=== PATIENT | male | born 1935 | race Caucasian/White ===

== ENCOUNTER 2016-06-22 16:48 | Inpatient (IN) | payer MEDICARE, OTHER ==
[~2016-06-22] VITALS: Ht 175.3 cm; Wt 83.8 kg
[~2016-06-22 16:48] MED LIST: ATOR20TA PO; DIGO0.12 PO; DILTCD120 PO; FE T325T PO; GLIP5TAB8 PO; PROT40TA PO; STOO100C PO; SUCR1S PO
[2016-06-22 16:56] VITALS: BP 132/84; PULSE 88; RESP 18; TEMP 97.6; O2SAT 97
--- NOTE | 2016-06-22 16:57 | PD ---
HPI Chief Complaint: head injury Time Seen by Provider: 16:56 Travel History International Travel<30 days: No Contact w/Intl Traveler<30days: No Traveled to known affect area: No History of Present Illness HPI 81-year-old male was transferred from [facility] for a head injury, head bleed and facial injury sustained from a fall. They did a CT scan of his head, maxillofacial and cervical spine which showed these injuries. They spoke with the trauma surgeon who accepted the case. I went to see the patient and he appears to be somnolent. He is confused and answers repetitively the same thing to different questions. Best GCS is 13. Patient has a large contusion on the left periorbital area with some sutures in place. They sent the patient with the paperwork and the CD of the CAT scans. Dr. Tobin from maxillofacial is here evaluating the patient as well. Patient is unable to give any meaningful history presently. PFSH Past Medical History Narrative Medical List of his past medical history as reviewed from the nursing note. Asthma: No Atrial Fibrillation: Yes (2006) Blood Disorders: Yes (see above) Cancer: Yes (SKIN CANCER REOVED FROM NOSE.) Cardiovascular Problems: Yes (afib 2006) High Cholesterol: Yes Chemotherapy: No Chest Pain: No COPD: No Diabetes: Yes (LANTUS) Diminished Hearing: No Endocrine: No Gastrointestinal Disorders: Yes (GI BLEED 2006.) GERD: Yes Gout: Yes Hypertension: Yes Immune Disorder: No Musculoskeletal: Yes (PULL SHOULDER OUT PLAYING GOLF) Psychiatric: No Respiratory: No Radiation Therapy: No Sleep Apnea: No Ulcer: Yes (HX OF PEPTIC ULCER DISEASE) Past Surgical History Abdominal Surgery: Yes (COLON RESECTION-2002.) AICD: No Arteriovenous Shunt: No Insulin Pump: No Joint Replacement: No Pacemaker: No Other Surgery: Yes (COLON RESECTION 2001 2NDARY TO ULCERATIVE COLITIS. ) Social History Alcohol Use: No Tobacco Use: No Substance Use: No Allergies-Medications (Allergen,Severity, Reaction): Coded Allergies: No Known Allergies (Verified , 06/22/16) Comments No known drug allergies. Reported Meds & Prescriptions Reported Meds & Active Scripts Active Reported Klor-Con M10 (Potassium Chloride Microencaps) Unknown Strength Tab Unknown Dose PO BID Lasix (Furosemide) 20 Mg Tab 20 Mg PO BID Prozac (Fluoxetine HCl) 20 Mg Cap 20 Mg PO DAILY Glipizide 5 Mg Tab 5 Mg PO BIDAC Take 30 minutes before a meal Ferrous Sulfate 325 Mg Tab 325 Mg PO DAILY Colace (Docusate Sodium) 100 Mg Cap 100 Mg PO BID Diltiazem CD 24 HR 120 Mg Caper 120 Mg PO DAILY Digoxin 0.125 Mg Tab 0.125 Mg PO DAILY Atorvastatin (Atorvastatin Calcium) 20 Mg Tab 20 Mg PO HS Narrative Medication List of his home medications reviewed from the nursing note. Review of Systems Except as stated in HPI: all other systems reviewed are Neg Physical Exam Narrative GENERAL: Lethargic, confused, elderly, moderate distress SKIN: Warm and dry. HEAD: Atraumatic. Normocephalic. Large left periorbital ecchymosis with 4 sutures in the inferior orbital ridge. No active bleeding. EYES: Pupils equal and round. No scleral icterus. No injection or drainage. ENT: No nasal bleeding or discharge. Mucous membranes pink and moist. NECK: Trachea midline. No JVD. CARDIOVASCULAR: Regular rate and rhythm. No murmur appreciated. RESPIRATORY: No accessory muscle use. Clear to auscultation. Breath sounds equal bilaterally. GASTROINTESTINAL: Abdomen soft, non-tender, nondistended. Hepatic and splenic margins not palpable. MUSCULOSKELETAL: No obvious deformities. No clubbing. No cyanosis. No edema. NEUROLOGICAL: GCS 13. No obvious cranial nerve deficits. Motor grossly within normal limits. PSYCHIATRIC: Unable to assess Data Data Last Documented VS Vital Signs Date Time Temp Pulse Resp B/P Pulse Ox O2 Delivery O2 Flow Rate FiO2 06/22/16 17:05 90 16 98 Room Air 06/22/16 16:56 97.6 132/[address] Brain W/O Iv Contrast(Rout) (06/22/16 ) Ct Facial Bones W/O Iv Cont (06/22/16 ) Prothrombin Time / Inr (Pt) (06/22/16 17:09) ^ Securities Broker / Telemetry (06/22/16 17:09) ^ Saline Lock (06/22/16 17:09) Admit Order (Ed Use Only) (06/22/16 17:32) Labs Laboratory Tests Test 06/22/16 17:20 Prothrombin Time 14.8 SEC Prothromb Time International 1.3 RATIO Ratio MDM Medical Decision Making Medical Screen Exam Complete: Yes Emergency Medical Condition: Yes Medical Record Reviewed: Yes Differential Diagnosis Intracranial bleed, facial fractures, brain herniation Narrative Course 5:39 PM I'm repeating the head CT given his somnolence. Initial CT that was done at 11 AM this morning at [facility] showed a small frontal bleed with some surrounding edema. She has history of atrial fibrillation but there were no coag studies done. I've ordered that. I am unaware of the fact that if patient is on any anticoagulation for his atrial fibrillation. I contacted the trauma surgeon Dr. Ghosh to let him know that the patient is here and update him about his current condition. He has accepted the patient for admission and patient will be admitted to the ICU. He wants the patient to be admitted under his service. Procedures EKG Prior to Arrival: No Physician Communication Physician Communication Dr. Johnston, Dr. Tobin Diagnosis Primary Impression: Intracranial bleed Additional Impressions: Facial fracture due to fall Qualified Code: S02.92XA - Facial fracture due to fall, closed, initial encounter Fall Qualified Code: W19.XXXA - Fall, initial encounter Aguilar Dexter MD Jun 22, 2016 16:57
[2016-06-22 17:40] LABS: INTERNATIONAL NORMALIZED RATIO 1.3 RATIO; PROTHROMBIN TIME - PATIENT 14.8 SEC (9.8-11.6)
--- NOTE | 2016-06-22 18:05 | RADRPT ---
EXAM DATE/TIME: 06/22/2016 17:36 [facility] COMPARISON: No previous studies available for comparison. INDICATIONS : Trauma; fall today, known facial fractures. RADIATION DOSE: 36.73 CTDIvol (mGy) MEDICAL HISTORY : None SURGICAL HISTORY : None. ENCOUNTER: Initial ACUITY: 1 day PAIN SCORE: 5/10 LOCATION: Bilateral facial TECHNIQUE: Volumetric scanning of the facial bones was performed. Using automated exposure control and adjustme nt of the mA and/or kV according to patient size, radiation dose was kept as low as reasonably achiev able to obtain optimal diagnostic quality images. FINDINGS: Again seen is a 1 cm hemorrhage in the orbital frontal region on the left. There is a fracture of th e posterior lateral orbital rim with minimal buckling of the zygomatic arch. The infraorbital rim ap pears intact. There is no entrapment. The mandible is intact. CONCLUSION: Fractures of the left maxillary antrum. Small 1 cm orbital frontal hemorrhage on the left. Rock Walters MD FACR on June 22, 2016 at 17:59 Board Certified Radiologist. This report was verified electronically.
--- NOTE | 2016-06-22 18:09 | RADRPT ---
EXAM DATE/TIME: 06/22/2016 17:36 [facility] COMPARISON: CT BRAIN W/O CONTRAST, November 06, 2015, 13:14. INDICATIONS : Trauma; fall, evaluate for bleed. RADIATION DOSE: 56.35 CTDIvol (mGy) MEDICAL HISTORY : Hypertension. SURGICAL HISTORY : None. ENCOUNTER: Initial ACUITY: 1 day PAIN SCALE: 5/10 LOCATION: cranial TECHNIQUE: Multiple contiguous axial images were obtained of the head. Using automated exposure control and adj ustment of the mA and/or kV according to patient size, radiation dose was kept as low as reasonably a chievable to obtain optimal diagnostic quality images. FINDINGS: There is a small 1.1 cm hemorrhage in the left orbital frontal region. The right hemisphere is unrema rkable. Ventricular size is appropriate. The posterior fossa appears normal. There is calcification of the right maxillary sinus. There is a fracture of the anterior orbital rim as well as the posterior lateral orbital rim. The skull is intact. CONCLUSION: 1.1 cm left orbital frontal hemorrhage. Facial bone fractures as described above. Rock Walters MD FACR on June 22, 2016 at 17:57 Board Certified Radiologist. This report was verified electronically.
[2016-06-22] MEDS ORDERED: ATOR20TA15 PO (18:15)
[2016-06-22] MEDS ORDERED: PROZ20CA11 PO (18:15)
[2016-06-22] MEDS ORDERED: GLIP5TAB8 PO (18:15)
[2016-06-22] MEDS ORDERED: FURO1TAB62 PO (18:15)
[2016-06-22] MEDS ORDERED: FERR325T PO (18:15)
[2016-06-22] MEDS ORDERED: DILT-60 PO (18:15)
[2016-06-22] MEDS ORDERED: COLA100C3 PO (18:15)
[2016-06-22] MEDS ORDERED: DIGO0.12 PO (18:15)
[2016-06-22] MEDS ORDERED: POTA-88 PO (18:15)
[2016-06-22] MEDS: ceFAZolin 1,000 MG/NS 100 ML IV SCH ×2 (18:23)
[2016-06-22 18:30] VITALS: BP 126/81; PULSE 68; RESP 18; O2SAT 98
[2016-06-22 19:09] VITALS: BP 120/88; PULSE 97; RESP 16; O2SAT 90; O2SAT 95
[2016-06-22 19:16] VITALS: O2SAT 95
--- NOTE | 2016-06-22 19:35 | HHI.HP ---
HPI Service Critical Care Medicine Primary Care Physician Unknown Admission Diagnosis fall, head bleed, facial fracture Diagnosis: Chief Complaint: Somnolent. Transfer from [facility] after fall with brain bleed and facial fracture, AMS. Travel History International Travel<30 Days: No Contact w/Intl Traveler <30 Da: No Traveled to Known Affected Are: No History of Present Illness 81 y/o man fell forward on to his face, sustaining maxillary fracture and small left frontal lobe parenchymal contusion/bleed, 1 cm size, no shift or edema. Somnolent on arrival. GCS 13 in ED here. Past Family Social History Allergies: Coded Allergies: No Known Allergies (Verified , 06/22/16) Past Medical History Past Medical History Narrative Medical List of his past medical history as reviewed from the nursing note. Asthma: No Atrial Fibrillation: Yes (2006) Blood Disorders: Yes (see above) Cancer: Yes (SKIN CANCER REOVED FROM NOSE.) Cardiovascular Problems: Yes (afib 2006) High Cholesterol: Yes Chemotherapy: No Chest Pain: No COPD: No Diabetes: Yes (LANTUS) Diminished Hearing: No Endocrine: No Gastrointestinal Disorders: Yes (GI BLEED 2006.) GERD: Yes Gout: Yes Hypertension: Yes Immune Disorder: No Musculoskeletal: Yes (PULL SHOULDER OUT PLAYING GOLF) Psychiatric: No Respiratory: No Radiation Therapy: No Sleep Apnea: No Ulcer: Yes (HX OF PEPTIC ULCER DISEASE) Past Surgical History Abdominal Surgery: Yes (COLON RESECTION-2002.) AICD: No Arteriovenous Shunt: No Insulin Pump: No Joint Replacement: No Pacemaker: No Other Surgery: Yes (COLON RESECTION 2001 2NDARY TO ULCERATIVE COLITIS. ) Social History Alcohol Use: No Tobacco Use: No Substance Use: No Allergies-Medications Allergies-Medications (Allergen,Severity, Reaction): Coded Allergies: No Known Allergies (Verified , 06/22/16) Comments No known drug allergies. Reported Meds & Prescriptions Reported Meds & Active Scripts Active Physical Exam Vital Signs Vital Signs Date Time Temp Pulse Resp B/P Pulse Ox O2 Delivery O2 Flow Rate FiO2 06/22/16 19:16 95 Nasal Cannula 2 06/22/16 19:09 97 16 120/88 90 Room Air 06/22/16 18:30 68 18 126/81 98 Room Air 06/22/16 17:05 90 16 98 Room Air 06/22/16 16:56 97.6 88 18 132/84 97 Physical Exam Gen: Lethargic, wakes easily. Speech mumbled. Head: Left orbital contusion. Neck: Supple, airway widely patent, no obstruction. Lungs: Clear, good claudine air movement. No wheezes or crackles. Heart: Irreg Irreg. Harsh 5/6 murmur heard throughout precordium, no JVD. Abdomen: Soft, nontender. No guarding. BS active. Extremities: Well perfused. 1+ chronic edema both ankles. Neuro: Moves 4 limbs with strength to command. Lethargic/somnolent but wakes easily. Laboratory Laboratory Tests Test 06/22/16 17:20 Prothrombin Time 14.8 Prothromb Time International 1.3 Ratio Assessment and Plan Problem List: (1) Cerebral parenchymal hemorrhage ICD Code: I61.9 Status: Acute (2) Maxillary fracture ICD Code: S02.401A Status: Acute (3) Atrial fibrillation ICD Code: I48.91 Status: Acute (4) Fall ICD Code: W19.XXXA Status: Acute Assessment and Plan Assessment: 1. Closed head injury. 2. Maxillary fracture left. 3. Permant a-fib. 4. Harsh systolic murmur. Plan: 1. Admit ICU. 2. Neuro checks hourly. 3. HOB up 30 degrees. 4. No chemical DVT Px. 5. SCDS. 6. Protonix. 7. Repeat head CT a.m., or immediately for neuro change. 8. Continue digoxin and cardizem CD. 9. SSI for euglycemia. Overall impression: Elderly man with moderately severe blunt head injury and small parenchymal hemorrhage. Mental status is clearly altered and potential for rapid deterioration is high. He is in permanent atrial fibrillation and it is unclear whether he is on novel anticoagulation. INR is normal. Critical care 40 mins aside from procedures. Problem Qualifiers (1) Cerebral parenchymal hemorrhage: (2) Fall: Qualified Code: W19.XXXA - Fall, initial encounter Darci Spicer MD Jun 22, 2016 19:35
[2016-06-22] MEDS ORDERED: RESP: ALBUTEROL 2.5 MG/IPRATROPIUM 0.5 MG NEB (PRN) INH (19:45)
[2016-06-22] MEDS ORDERED: CHLORHEXIDINE GLUCONATE 2 % 1 PACK (2 CLOTHS) TOP PRN (19:45)
[2016-06-22] MEDS ORDERED: SODIUM CHLORIDE 0.9% FLUSH 5 ML FLUSH IV FLUSH PRN (19:45)
[2016-06-22] MEDS ORDERED: MISCELLANEOUS NURSING INFORMATION XX SCH (19:45)
[2016-06-22] MEDS ORDERED: ONDANSETRON HCL 4 MG/2 ML VIAL IV PRN (19:45)
[2016-06-22 20:13] VITALS: BP 124/78; PULSE 86; RESP 16; O2SAT 98
[2016-06-22] MEDS ORDERED: GLUCAGON 1 MG/ML VIAL OTHER PRN (20:15)
[2016-06-22] MEDS ORDERED: DEXTROSE 50% IN WATER 50 ML VIAL(D50) IV PUSH PRN (20:15)
[2016-06-22] MEDS: FUROSEMIDE 20 MG TAB PO SCH (21:11)
[2016-06-22] MEDS: SODIUM CHLOR 0.9% 1000 ML INJ 1,000 ML IV SCH (21:11)
[2016-06-22] MEDS: SODIUM CHLORIDE 0.9% FLUSH 5 ML FLUSH IV FLUSH SCH (21:11)
--- NOTE | 2016-06-22 21:35 | MB ---
cc: MIKALA TOBIN DMD DATE OF CONSULTATION 06/22/2016 REASON FOR CONSULTATION Facial fractures. HISTORY OF THE PRESENT ILLNESS This is an 81-year-old male who is status post fall. I was contacted by the ER physician from [facility] that indicated to me that he has a left-sided ZMC fracture / orbital involvement. Upon further questioning also then he told me that the patient has a petechial bleed in his brain. I did then advised the transfer Center to contact Trauma Service as a multi system injury. I have seen and examined this patient this afternoon in the ED. He is alert, awake and oriented x2. In no acute distress. At times he seems confused and answers the same words to the questions. Denies any pain in his face or any vision problems. Denies any neck pain. Denies any shortness of breath and difficulty breathing. PAST MEDICAL HISTORY As per the reports: 1. Atrial fibrillation. 2. Diabetes mellitus type 2. 3. Acid reflux. 4. Hypercholesterolemia. 5. History of GI bleed. 6. Peptic ulcer disease. PAST SURGICAL HISTORY 1. Colon resection. 2. Skin cancer removed from nose. SOCIAL HISTORY No history of any alcohol, tobacco use, drug use. ALLERGIES NO KNOWN DRUG ALLERGIES. MEDICATIONS As per the report was noted in the computer. PHYSICAL EXAMINATION HEENT: Pupils equal, round and reactive to light and accommodation. Extraocular movements appear to be intact. The patient denies any diplopia or blurry vision. Has periorbital edema / ecchymosis that is noted. He also has a laceration on the left lateral orbital region which has been sutured by the ER at [facility]. The rest of the facial nasal bones have been palpated. No active heme that is noted. No tenderness to palpation. Intraorally the patient is edentulous maxilla wearing a denture and a partial denture of the bottom. No gross tenderness to palpation. Good range of opening and closing. No heme that is noted. No heme intraorally from the nose or any other place that is active that is noted at this point. IMAGING CT scan of the facial bones when a repeat CT scan of the brain was done now, shows left maxillary sinus fracture, minimally displaced with air fluid levels in the left maxillary sinus. Nondisplaced left zygomatic arch fracture. I do not see any gross orbital floor fracture that is noted. There is no herniation of any content. LABORATORY DATA A PT is 14.8 with INR is 1.3. Vital signs 97.6, pulse is 90, respiration rate ____, blood pressure 132/84 with an oxygen saturation of 98%. IMPRESSION An 81-year-old male status post fall at intermediate now presents with a nondisplaced left-sided zygomatic arch fracture, minimally displaced left-sided maxillary sinus fracture. He is edentulous on his maxilla. Fluid / blood is left maxillary sinus. At this time there is no surgical intervention needed from oral maxillofacial surgery standpoint. We will place the patient on sinus precautions and antibiotics. The patient can follow up in my office next week [facility]. [phone]. Advised the patient to be on a mechanically soft diet. Mikala Tobin DMD RRT/BERNA /5:59 PM /9:08 PM [place]
[2016-06-22 22:00] VITALS: PULSE 75
[2016-06-22] MEDS: ATORVASTATIN 20 MG TAB PO SCH (23:14)
[2016-06-23] VITALS (15 sets, daily range): BP systolic 122–137; BP diastolic 70–88; PULSE 64–89; RESP 16–22; TEMP 97–98.4; O2SAT 91–98
[2016-06-23] MEDS: ceFAZolin 1,000 MG/NS 100 ML IV SCH ×4 (02:34→09:05)
[2016-06-23 04:37] LABS: BICARBONATE 24.5 MEQ/L (21.0-32.0); POTASSIUM 4.5 MEQ/L (3.5-5.1)
[2016-06-23] MEDS: CHLORHEXIDINE GLUCONATE 2 % 1 PACK (2 CLOTHS) TOP SCH (04:57)
--- NOTE | 2016-06-23 05:50 | RADRPT ---
EXAM DATE/TIME: 06/23/2016 04:13 [facility] COMPARISON: CT BRAIN W/O CONTRAST, June 22, 2016, 17:36. INDICATIONS : Follow up bleed. RADIATION DOSE: 39.71 CTDIvol (mGy) MEDICAL HISTORY : Hypertension. SURGICAL HISTORY : None. ENCOUNTER: Subsequent ACUITY: 1 day PAIN SCALE: 2/10 LOCATION: cranial TECHNIQUE: Multiple contiguous axial images were obtained of the head. Using automated exposure control and adj ustment of the mA and/or kV according to patient size, radiation dose was kept as low as reasonably a chievable to obtain optimal diagnostic quality images. FINDINGS: Punctate parenchymal contusion in the left frontal region is unchanged. No new acute findings are sunil ntified. No evidence of intracranial mass. Nothing to suggest acute infarction. Opacification of the left maxillary sinus and associated fractures again noted. CONCLUSION: Stable small left frontal parenchymal contusion Dawood Givens MD on June 23, 2016 at 5:46 Board Certified Radiologist. This report was verified electronically.
[2016-06-23] MEDS: INSULIN ASPART SUPPLEMENTAL SCALE SQ SCH ×4 (06:00→18:00)
[2016-06-23] MEDS: SODIUM CHLORIDE 0.9% FLUSH 5 ML FLUSH IV FLUSH SCH ×2 (08:23→20:37)
[2016-06-23] MEDS: FUROSEMIDE 20 MG TAB PO SCH ×3 (08:24→21:00)
[2016-06-23] MEDS: DILTIAZEM-CD 120 MG CAP ER PO SCH (08:24)
[2016-06-23] MEDS: FLUoxetine HCL 20 MG CAP PO SCH (08:24)
[2016-06-23] MEDS: SODIUM CHLOR 0.9% 1000 ML INJ 1,000 ML IV SCH ×2 (08:24→19:25)
[2016-06-23] MEDS: DIGOXIN 0.125 MG TAB PO SCH (08:24)
[2016-06-23] MEDS: DOCUSATE SODIUM 100 MG CAP PO SCH ×3 (08:24→21:00)
[2016-06-23] MEDS ORDERED: PANTOPRAZOLE SODIUM 40 MG VIAL IV SCH (09:00)
--- NOTE | 2016-06-23 12:19 | MB ---
cc: HODA ALVARADO M.D. DATE OF CONSULTATION: 06/23/2014 REASON FOR CONSULTATION Traumatic brain injury. HISTORY OF PRESENT ILLNESS This is a 81-year-old gentleman who was transferred from [facility] after presenting there with a fall with subsequent facial fractures and a small frontal lobe contusion. He has been confused with some repetitive speech although he is able to follow simple commands but not relate much of a history. He states that he is unsteady on his feet in a chronic basis and uses a cane and he tripped and fell. He is on chronic Coumadin therapy for atrial fibrillation and also relates a history of diabetes and states he has other multiple medical problems. Main complaint at this point is left lateral chest wall area pain and some facial pain. CT scan of the head reveals a 1.1 cm left frontal lobe contusion from last night and a followup CT scan this morning this contusion is stable with no progression. He also has fracture of the left maxilla and he has been seen by maxillofacial surgery and recommended conservative management for now. PAST MEDICAL HISTORY 1. Atrial fibrillation. 2. Insulin-dependent diabetes mellitus. 3. Ulcerative colitis, status post colon resection in 2001. 4. Hypertension. 5. Gout. 6. Gastroesophageal reflux. 7. History of GI bleed in 2006. 8. Hyperlipidemia. MEDICATIONS 1. Atorvastatin 20 mg q.h.s. 2. Digoxin 0.125 mg daily. 3. Diltiazem 120 mg daily. 4. Colace 100 mg b.i.d. 5. Iron sulfate 325 mg daily. 6. Prozac 20 mg daily. 7. Lasix 20 mg b.i.d. 8. Glipizide 5 mg b.i.d. 9. Potassium chloride. ALLERGIES NO KNOWN DRUG ALLERGIES. SOCIAL HISTORY He is . He is a former smoker. Denies alcohol use. REVIEW OF SYSTEMS Pertinent positives include the complaint of left-sided facial pain around the forehead and maxillary sinus. Denies any neck pain. There is left lateral chest wall pain. Denies any shortness of breath. Does bleed and bruise easily related to Coumadin therapy and relates that he has been taking his medication, although his INR is normal. Complains of chronic unsteadiness. He has a cane to ambulate and relates this to his neuropathy from diabetes, although denies any numbness or paresthesias in the upper or lower extremities. Other pertinent positives as mentioned in history present illness. LABORATORY STUDIES INR is 1.3, PT 14.8, sodium 141, potassium 4.5, BUN 21, creatinine 0.9, glucose 106. PHYSICAL EXAMINATION VITAL SIGNS: Temperature 97.5, pulse 80, respiratory rate is 18, blood pressure 126/75, oxygen saturations 96% on 1 liter nasal cannula. HEAD: Left periorbital ecchymosis. NECK: Neck is supple with good range of motion. CHEST: Clear bilaterally. HEART: Regular rhythm, normal S1, S2. ABDOMEN: Soft, nontender. EXTREMITIES: No cyanosis, edema or deformity. NEUROLOGIC: He is awake, alert. He is oriented to name but not location or exact date. Pupils are equal, reactive. Left-sided slight facial swelling but face appears to be symmetric. Tongue is midline. He moves all four extremities with good strength. Negative Babinski. Follows simple commands. Appreciates light touch sensation. Speech is fluent but he does have some difficulty with complex command following. IMPRESSION 1. 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 2. Left maxillary sinus fracture. 3. Insulin dependent diabetes mellitus. 4. Chronic atrial fibrillation on Coumadin therapy with normal INR. PLAN The patient's diet and activity status can be increased as tolerated with out of bed with physical therapy for safety evaluation. He can be transferred to a regular floor and if stable can be discharged the next day or two depending on his progress and rehabilitative needs. Recommend mechanical DVT prophylaxis along with gastrointestinal stress ulcer prophylaxis and incentive spirometry. MD DAE Ward/YASMIN /9:28 AM /11:58 AM
[2016-06-23] MEDS: CEPHALEXIN MONOHYDRATE 500 MG CAP PO SCH ×5 (14:00→22:00)
--- NOTE | 2016-06-23 14:47 | HHI.CCPN ---
Subjective Brief History This is an 81-year-old gentleman who sustained a fall. Apparently he fell forward and landed on his face. GCS = 15. He was a transfer from [facility]. PMHx: DM, HLD, GI bleed, PUD, skin cancer, Afib, Colon resection - UC INJURIES: LEFT periorbital contusion (4 sutures) Small LEFT frontal lobe parenchymal contusion / bleed LEFT sided maxillary sinus fx LEFT zygomatic arch fx 24 Hour Review/Hospital Course 06/23/2016 Patient is sitting out of bed and chair. He is able to participate in simple conversation. However it takes him a while to remember his 's name. Patient is stable, therefore he can easily be transferred to the [facility] floor. Objective Vital Signs Date Time Temp Pulse Resp B/P Pulse Ox O2 Delivery O2 Flow Rate FiO2 06/23/16 12:00 98.4 82 18 128/70 91 06/23/16 07:45 Nasal Cannula 1.00 Intake and Output 06/22/16 06/22/16 06/23/16 08:00 16:00 00:00 Intake Total 123 ml Output Total 150 ml Balance -27 ml Result Diagram: 06/23/16 0341 Imaging Last Impressions Head CT 06/23/16 0400 Signed Impressions: Service Date/Time: Thursday, June 23, 2016 04:13 - CONCLUSION: Stable small left frontal parenchymal contusion Dawood Givens MD Maxillofacial CT 06/22/16 0000 Signed Impressions: Service Date/Time: Wednesday, June 22, 2016 17:36 - CONCLUSION: Fractures of the left maxillary antrum. Small 1 cm orbital frontal hemorrhage on the left. Rock Walters MD FACR Objective Remarks GENERAL: This is a 81-year-old male sitting up in a chair in no distress. SKIN: Warm and dry. HEAD: Atraumatic. Normocephalic. EYES: PERRLA. Bilateral eye swelling and ecchymosis. ENT: No nasal bleeding or discharge. Mucous membranes pink and moist. NECK: Trachea midline. No JVD. CARDIOVASCULAR: Regular rate and rhythm. CM shows Afib. HR = 85-87. RESPIRATORY: No accessory muscle use. Lungs are clear to auscultation. Breath sounds equal bilaterally. No distress or dyspnea. GASTROINTESTINAL: BS + x 4 quads. Abdomen soft, non-tender, nondistended. MUSCULOSKELETAL: Extremities without cyanosis, or edema. + peripheral pulses x 4 extremities. Warm with good capillary refill and sensation. MAEW. NEUROLOGICAL: Awake and alert. Normal speech and pattern. Urinary Catheter Assessment Urinary Catheter: Yes Assessment to: Continue Assessment and Plan Assessment: (1) Intracranial bleed ICD Code: I62.9 Status: Acute (2) Facial fracture due to fall ICD Code: S02.92XA Status: Acute (3) Maxillary fracture ICD Code: S02.401A Status: Acute (4) Fall ICD Code: W19.XXXA Status: Acute (5) Cerebral parenchymal hemorrhage ICD Code: I61.9 Status: Acute Plan JACK[place]: This is a 81-year-old male who sustained a fall. Apparently he fell forward onto his face. INJURIES: LEFT periorbital contusion (4 sutures) Small LEFT frontal lobe parenchymal contusion / bleed LEFT sided maxillary sinus fx LEFT zygomatic arch fx Consults: CCM. OMFS. Neurosurgery. Diet: Regular mechanical soft diet (per OMFS). Tolerating po diet. Encourage good po intake with each meal. Pulmonary: Encourage good pulmonary toileting. IS at bedside and pt encouraged to use. Rationale for use explained to patient, and verbalized understanding. Duonebs ordered. PAIN Management: Tylenol po. Activity: OOB with assist. PT and OT ordered GI prophylaxis: Protonix IV Bowel regimen: Colace and MOM. DVT prophylaxis: Mechanical VTE with SCDs. Chemical management contraindicated at this time is to parenchymal contusion/bleed. HTN meds: Cardizem, Digoxin, Lasix, ABX: Keflex 500mg TID. DC Planning: Case management consulted for assistance with final discharge disposition. Discussed with RN at bedside. Emotional support provided to patient at bedside and plan of care discussed. Patient is hemodynamically stable in the ICU and therefore can be transferred managed on the med/surg floor for further care. Problem Qualifiers (1) Facial fracture due to fall: Qualified Code: S02.92XA - Facial fracture due to fall, closed, initial encounter (2) Fall: Qualified Code: W19.XXXA - Fall, initial encounter (3) Cerebral parenchymal hemorrhage: Corina Ramirez Jun 23, 2016 14:47
[2016-06-23] MEDS: HALOPERIDOL LACTATE 5 MG/ML AMP IM ONE ×2 (17:00→18:11)
[2016-06-23] MEDS ORDERED: QUEtiapine FUMARATE 25 MG TAB PO ONE (17:00)
[2016-06-23] MEDS: MAGNESIUM HYDROXIDE SUSP 30 ML CUP PO SCH (20:37)
[2016-06-23] MEDS: QUEtiapine FUMARATE 25 MG TAB PO SCH ×2 (20:37→21:00)
[2016-06-23] MEDS: ATORVASTATIN 20 MG TAB PO SCH ×2 (20:37→21:00)
[2016-06-24] VITALS (12 sets, daily range): BP systolic 95–123; BP diastolic 57–87; PULSE 62–114; RESP 16–27; TEMP 97.4–98.5; O2SAT 92–95
[2016-06-24] MEDS: FUROSEMIDE 20 MG TAB PO SCH ×3 (00:45→21:59)
[2016-06-24] MEDS: DOCUSATE SODIUM 100 MG CAP PO SCH ×3 (00:45→21:59)
[2016-06-24] MEDS: QUEtiapine FUMARATE 25 MG TAB PO SCH ×3 (00:45→22:00)
[2016-06-24] MEDS: ATORVASTATIN 20 MG TAB PO SCH ×2 (00:45→22:00)
[2016-06-24] MEDS: CEPHALEXIN MONOHYDRATE 500 MG CAP PO SCH ×4 (00:46→22:00)
[2016-06-24] MEDS: CHLORHEXIDINE GLUCONATE 2 % 1 PACK (2 CLOTHS) TOP SCH (04:00)
[2016-06-24] MEDS: INSULIN ASPART SUPPLEMENTAL SCALE SQ SCH ×4 (06:00→17:51)
[2016-06-24 09:07] LABS: HEMATOCRIT 42.9 % (39.0-51.0); MEAN CELL VOLUME 98.8 FL (80.0-100.0); MEAN CORPUSCULAR HEMOGLOBIN 30.7 PG (27.0-34.0); MEAN CORPUSCULAR HGB CONC 31.1 % (32.0-36.0); PLATELET COUNT 188 TH/MM3 (150-450); RED BLOOD COUNT 4.34 MIL/MM3 (4.50-5.90); RED CELL DISTRIBUTION WIDTH 18.2 % (11.6-17.2); REVIEW FLAG FINAL; WHITE BLOOD COUNT 9.1 TH/MM3 (4.0-11.0)
[2016-06-24 09:12] LABS: BICARBONATE 27.4 MEQ/L (21.0-32.0); MAGNESIUM 1.7 MG/DL (1.5-2.5); POTASSIUM 3.6 MEQ/L (3.5-5.1)
--- NOTE | 2016-06-24 09:13 | HHI.NSPN ---
(Patrick Su) History Chief Complaint: Headache. (Patrick Su) Interval History This is a 81-year-old gentleman who was transferred from [facility] after presenting there with a fall with subsequent facial fractures and a small frontal lobe contusion. He has been confused with some repetitive speech although he is able to follow simple commands but not relate much of a history. He states that he is unsteady on his feet in a chronic basis and uses a cane and he tripped and fell. He is on chronic Coumadin therapy for atrial fibrillation and also relates a history of diabetes and states he has other multiple medical problems. Main complaint at this point is left lateral chest wall area pain and some facial pain. CT scan of the head reveals a 1.1 cm left frontal lobe contusion from last night and a followup CT scan this morning this contusion is stable with no progression. He also has fracture of the left maxilla and he has been seen by maxillofacial surgery and recommended conservative management for now. 06/24/16: Pt awake and alert. Confused but pleasant. Complains of headache. No nausea or vomiting. (Patrick Su) Review of Systems General: Negative for: fever, chills, insomnia Respiratory: Negative for: shortness of breath, cough, sputum Cardiovascular: Negative for: chest pain Gastrointestinal: Negative for: nausea, vomitting, diarrhea, constipation ( Patrick Su) Exam Results Vital Signs Date Time Temp Pulse Resp B/P Pulse Ox O2 Delivery O2 Flow Rate FiO2 06/24/16 06:00 96 06/24/16 04:00 98.5 26 121/69 93 06/23/16 19:32 21 06/23/16 07:45 Nasal Cannula 1.00 Intake and Output 06/23/16 06/23/16 06/24/16 08:00 16:00 00:00 Intake Total 696 ml 988 ml 154 ml Output Total 500 ml 300 ml 125 ml Balance 196 ml 688 ml 29 ml (Patrick Su) Physical Examination Resp: CTA bilaterally Heart: Irregular. 3/6 systolic ejection murmur Abd: Soft positive bs Skin: Left periorbital ecchymosis. Sutures left of eye clean and dry. Muscle: Moves all 4 extremities with seemingly good strength. Neuro: Pt awake and alert. Pupils 4mm bilaterally reactive bilaterally. Confused but pleasant. Follows commands well. Speech repetitive at times. ( Patrick Su) Lab, Micro, Other Results Last Impressions Head CT 06/23/16 0400 Signed Impressions: Service Date/Time: Thursday, June 23, 2016 04:13 - CONCLUSION: Stable small left frontal parenchymal contusion Dawood Givens MD Maxillofacial CT 06/22/16 0000 Signed Impressions: Service Date/Time: Wednesday, June 22, 2016 17:36 - CONCLUSION: Fractures of the left maxillary antrum. Small 1 cm orbital frontal hemorrhage on the left. Rock Walters MD FACR 06/23/16 06/23/16 06/24/16 15:00 23:00 07:00 Intake Total 988 ml 154 ml 60 ml Output Total 300 ml 125 ml 600 ml Balance 688 ml 29 ml -540 ml Intake Oral 240 ml 60 ml 60 ml IV Total 748 ml 94 ml Output Urine Total 300 ml 125 ml 600 ml # Voids 2 # Bowel Movements 0 0 0 (Patrick Su) Medical Decision Making Impression and Plan A: 81 y/o M with a mild traumatic brain injury with a small left frontal lobe contusion which is stable on follow-up imaging study. 2. Left maxillary sinus fracture. 3. Insulin dependent diabetes mellitus. 4. Chronic atrial fibrillation on Coumadin therapy with normal INR. PLAN Continue to monitor neuro exam while in hospital Continue with medical care Continue with rehab efforts. (Patrick Su) Attending Statement The exam, history, and the medical decision-making described in the above note were completed with the assistance of the mid-level provider. I reviewed and agree with the findings presented. I attest that I had a [id number] encounter with the patient on the same day, and personally performed and documented my assessment and findings in the medical record. (Ryan Nazario MD) Patrick Su Jun 24, 2016 09:13 Ryan Nazario MD Jun 24, 2016 17:51
[2016-06-24] MEDS: FLUoxetine HCL 20 MG CAP PO SCH (10:14)
[2016-06-24] MEDS: DILTIAZEM-CD 120 MG CAP ER PO SCH (10:14)
[2016-06-24] MEDS: SODIUM CHLORIDE 0.9% FLUSH 5 ML FLUSH IV FLUSH SCH ×2 (10:14→21:59)
[2016-06-24] MEDS: DIGOXIN 0.125 MG TAB PO SCH (10:14)
[2016-06-24] MEDS: PROPRANOLOL HCL 20 MG TAB PO SCH ×2 (10:15→21:59)
[2016-06-24] MEDS: ACETAMINOPHEN 325 MG TAB PO PRN (10:28)
[2016-06-24] MEDS ORDERED: LORazepam 0.5 MG TAB PO PRN (10:45)
--- NOTE | 2016-06-24 13:08 | HHI.CCPN ---
Subjective Brief History This is an 81-year-old gentleman who sustained a fall. Apparently he fell forward and landed on his face. GCS = 15. He was a transfer from [facility]. PMHx: DM, HLD, GI bleed, PUD, skin cancer, Afib, Colon resection - UC INJURIES: LEFT periorbital contusion (4 sutures) Small LEFT frontal lobe parenchymal contusion / bleed LEFT sided maxillary sinus fx LEFT zygomatic arch fx 24 Hour Review/Hospital Course 06/23/2016 Patient is sitting out of bed and chair. He is able to participate in simple conversation. However it takes him a while to remember his 's name. Patient is stable, therefore he can easily be transferred to the [facility] floor. 06/24/16 Patient is doing well this morning Is awake and alert but disoriented and time and space Apparently had to be restrained last night due to sundown syndrome Neurologically patient is fully intact This small left frontal contusion remains stable and the zygoma fracture is a nonoperative issue Patient is a bordering ICU and waiting for the floor bed for last 2 days Objective Vital Signs Date Time Temp Pulse Resp B/P Pulse Ox O2 Delivery O2 Flow Rate FiO2 06/24/16 10:06 95 21 06/24/16 06:00 96 06/24/16 04:00 98.5 26 121/69 06/23/16 07:45 Nasal Cannula 1.00 Intake and Output 06/23/16 06/23/16 06/24/16 08:00 16:00 00:00 Intake Total 696 ml 988 ml 154 ml Output Total 500 ml 300 ml 125 ml Balance 196 ml 688 ml 29 ml Result Diagram: 06/24/16 0817 06/24/16 0817 Exam JEWELLERY DESIGNER Awake alert and disoriented Will place on some propranolol and possibly Aricept as per neuropsychologist Will need occasional restraints patient becomes more lucid and oriented Hemodynamic/Cardiac Imo dynamically stable Pulmonary/Respiratory Bilateral good breath sounds Abdomen/GI Nutrition Abdomen is soft and patient is tolerating diet but needs to be fed Assessment and Plan Assessment: (1) Intracranial bleed ICD Code: I62.9 Status: Acute (2) Facial fracture due to fall ICD Code: S02.92XA Status: Acute (3) Maxillary fracture ICD Code: S02.401A Status: Acute (4) Fall ICD Code: W19.XXXA Status: Acute (5) Cerebral parenchymal hemorrhage ICD Code: I61.9 Status: Acute Plan PALA: This is a 81-year-old male who sustained a fall. Apparently he fell forward onto his face. INJURIES: LEFT periorbital contusion (4 sutures) Small LEFT frontal lobe parenchymal contusion / bleed LEFT sided maxillary sinus fx LEFT zygomatic arch fx Consults: CCM. OMFS. Neurosurgery. Diet: Regular mechanical soft diet (per OMFS). Tolerating po diet. Encourage good po intake with each meal. Pulmonary: Encourage good pulmonary toileting. IS at bedside and pt encouraged to use. Rationale for use explained to patient, and verbalized understanding. Duonebs ordered. PAIN Management: Tylenol po. Activity: OOB with assist. PT and OT ordered GI prophylaxis: Protonix IV Bowel regimen: Colace and MOM. DVT prophylaxis: Mechanical VTE with SCDs. Chemical management contraindicated at this time is to parenchymal contusion/bleed. HTN meds: Cardizem, Digoxin, Lasix, ABX: Keflex 500mg TID. DC Planning: Case management consulted for assistance with final discharge disposition. Discussed with RN at bedside. Emotional support provided to patient at bedside and plan of care discussed. Patient is hemodynamically stable in the ICU and therefore can be transferred managed on the med/surg floor for further care. Attestation Awaiting transfer to the floor The exam, history, and the medical decision-making described in the above note were completed with the assistance of the mid-level provider. I reviewed and agree with the findings presented. I attest that I had a [id number] encounter with the patient on the same day, and personally performed and documented my assessment and findings in the medical record. Critical care time 35 minutes. Problem Qualifiers (1) Facial fracture due to fall: Qualified Code: S02.92XA - Facial fracture due to fall, closed, initial encounter (2) Fall: Qualified Code: W19.XXXA - Fall, initial encounter (3) Cerebral parenchymal hemorrhage: Emiliano Brian MD Jun 24, 2016 13:08
--- NOTE | 2016-06-24 13:11 | PD.HHIRCNE ---
Patient History Record/History Review Medical Information Review: Hx of present illness, Surgical Hx, Prior Medical Hx, Developmental/Vocational, Previous setting Reason for Referral: The patient is an 81 year old unknown handed male status post traumatic injury secondary to a fall on 06/22/2016. The patient sustained a maxillary fracture and small left frontal lobe contusion/bleed with a GCS score of 13 on admission. 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 I had the opportunity to interview the patient's , who informed me that the patient has experienced cognitive decline for well over one year, characterized by impairments of memory, increasing paranoia concerning 's activities, and deterioration of self-care activities. He had not been formally diagnosed with a neurocognitive disorder up to this time. Beginning several months ago, he had a stomach bleed that landed him in a local SNF, with his ongoing recovery complicated by a series of falls, which is the reason he is here at [facility]. Because of his clinical history, this patient is referred for baseline neuropsychological evaluation to assess cognitive, behavioral and emotional aspects of the injury. Neuropsych Precautions: Ongoing areas of concern will include attention inefficiency, impairments of learning and memory, speech and language impairments, impairments of complex problem solving the ability to understand abstract reasoning, emotional reaction to their condition, lack of insight, awareness and judgment, and behavioral impulsivity. His clinical history indicates that his recovery from the effects of the superimposed brain injury will be attenuated by an underlying neurocognitive disorder. Past Surgical/Medical History Past Surgery: Yes (COLON RESECTION 2008) Major surgery in last 100 days: Unknown Hx Anesthesia Reactions: No Hx Orthopedic Surgery: No Hx Cardiac Surgery: No Hx Chest Surgery: No Hx Abdominal Surgery: Yes (COLON RESECTION 2008) Hx Genitourinary Surgery: No Hx Endocrine Surgery: No Hx Eye Surgery: Yes (CATERACTS BILATERAL) Hx Ear Surgery: No Hx Oral Surgery: Yes (DENTURES) History of Transplant: No Hx Other Surgery: SKIN CANCER SURGERY Hx of Neuro Prob: No Hx Falls: No Hx of Musculoskeletal Pro: No Hx of Cardiovascular Prob: Yes (HTN, AFIB, HYPERLIPIDEMIA) Hypertension (High Blood Press: Yes Hx Clotting Problems: No Venous Thromboembolism Present: No Hx Chest Pain: No Hx Lightheadedness: No Hx Congestive Heart Failure: No Syncope (Fainting): No Hx of Respiratory Problem: No Hx Asthma: No Hx Chronic Obstructive Pulmona: No Hx Sleep Apnea: No Hx of GI Problems: Yes (ULCERITIVE COLLITIS, PREVIOUS VISIT FOR PEPTIC ULCER BLEED) Hx Heartburn: No Hx Gastroesophageal Reflux: No Hx Hiatal Hernia: Yes (REDUCTABLE ) Hx Ulcer: Yes (PREVIOUS VISIT IN OCTOBER 2015) Hx Liver Disease: No Hx Gallbladder Disease: No Hx Inflammatory Bowel Disease: No Hx of Problems: No Hx of Immuno Disor: No Hx Autoimmune Disease: No Hx of Endocrine Problems: No Hx Diabetes: Yes Does Patient Currently Take Gl: No Hx of Eye Probl: Yes (PREVOUS EYE SURGERY ) Hx of Cataracts: Bilateral Hx of Hearing or Ear Problems: No Hx Dental Problems: Yes (UPPER FULL DENTURES) Hx Psychiatric Problems: Yes (EARLY DEMENTIA) Hx Anxiety: No Hx Depression: Yes (LAST SIX MONTHS IN ASSISTED LIVING) Hx Blood Dyscrasias: No Hx of MDRO: No Hx of MRSA: No Hx of VRE: No Hx of CDIFF: No Hx of Tuberculosis: No Hx Chicken Pox: Yes (CHILDHOOD) If No, Have You Been Exposed W: No Hx Measles: Yes Hx of Body/Medical Devices: No Hx Pacemaker: No Hx Internal Defibrillator: No Hx Joint Replacement: No Insulin Pump: No Hx Arteriovenous Shunt: No Hx Dental Implants: No Genitourinary Device: No Gastrointestinal Ostomy: No Blood Transfusion History Will receive Blood /Blood prod: Yes Hx Blood Transfusions: Yes (IN OCTOBER 2015, NO REACTION) Hx Blood Transfusion Reaction: No Medication Active Medications Cephalexin Monohydrate (Keflex) 500 mg Q8HR PO Last administered on 06/24/16 06 :14; Admin Dose 500 MG; Start 06/23/16 at 14:00 Donepezil HCl (Aricept) 10 mg HS PO; Start 06/24/16 at 21:00 Famotidine (Pepcid) 20 mg HS PO; Start 06/24/16 at 21:00 Haloperidol Lactate (Haldol Inj) 2 mg ONCE ONCE IM Last administered on 18:11; Admin Dose 2 MG; Start 06/23/16 at 17:00; Stop 06/24/16 at 07:09; Status DC Lorazepam (Ativan) 0.5 mg TID PRN PO; Start 06/24/16 at 10:45 Magnesium Hydroxide (Milk Of Magnesia Liq) 30 ml HS PO; Start 06/23/16 at 21:00 Propranolol HCl (Inderal) 20 mg Q12HR PO Last administered on 06/24/16 10:15; Admin Dose 20 MG; Start 06/24/16 at 09:45 Quetiapine Fumarate (SEROquel) 25 mg BID PO Last administered on 06/24/16 10:15 ; Admin Dose 25 MG; Start 06/23/16 at 21:00 Quetiapine Fumarate (SEROquel) 25 mg ONCE ONCE PO Last administered on 17:06; Admin Dose 25 MG; Start 06/23/16 at 17:00; Stop 06/24/16 at 07:09; Status DC Mental Status Assessment Orientation: oriented to Self, disoriented to Place, disoriented to Time, disoriented to Situation Mental Status: Impaired: Thought processing, Language/Interactions, Attention, Learning/Memory, Problem-Solving, Visuospatial/Construction, Self-regulation, Other Observation The patient is alert but oriented only to person. He was not oriented to place , time or circumstances surrounding the reason for hospitalization. The [place] Orientation and Amnesia Test (GOAT) score was 2/100, which falls within the impaired range. In terms of attention skills, the patient was unable to remain on task or to remember basic or complex instructions. In terms of memory functioning, the patient was unable to remember any of three words after a brief period of time. The patient did not initiate coherent spontaneous conversation. Speech was characterized by impaired prosody, grammar , articulation, volume or rate. Basic naming skills were not intact. Language repetition skills were intact. The patients comprehensions for basic one- and two-stage commands were not intact. Basic verbal abstraction and problem- solving skills were not intact. The patient appears to posses poor insight and awareness into their situation and within the limits of this brief evaluation, poor judgment. Adjustment/Coping Assessment Adjustment/Coping: Severe: Awareness, Insight, Not Assessed: Depression, Anxiety, Pain, Apathy Affect: Other Observation The patients thought content appeared free from suicidal, homicidal or paranoid ideation, and the patients thought processes were perseverative. The patients mood was anxious, and his affect was worrisome. LTG Status: Deferred STG Status: Deferred Team Members: Neuropsychologist Behavior Assessment Agitation: Moderate Treatment Engagement: Minimal Observation Behaviorally, the patient demonstrated signs of agitation, impulsivity and disinhibition. Nursing staff reported significant agitation requiring restraints. 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 These double conditions will attenuate his recovery going forward. Diagnosis: [place] Level: IV:Confused/Agitated-maximal assist Maximizing acute care outcome It is recommended that the patient be monitored for emergent behavioral impulsivity as the medical condition evolves. This patients neuropathological challenges will limit his recovery potential going forward, and these challenges will require specialized therapeutic skills to maximize outcome. 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 Discharge Planning Anticipated Problems Because this patient has an underlying neurocognitive condition that was significant in it's own right, with a superimposed neurocognitive condition, it is my clinical opinion that even if he were to enjoy maximal neurocognitive recovery from his traumatic brain injury, the patient will still have underlying neurocognitive impairments, and consequently, certain restrictions are to be considered going forward to manage his ongoing care, which include the followin. This patient is NOT considered to be cognitively capable of making decisions of a legal, financial and medical nature due both to his present and underlying neurocognitive impairments. He demonstrates the IMPAIRED ability to appreciate a situation and its likely consequences and he demonstrates the IMPAIRED ability to manipulate information rationally. He will require family input regarding all important decisions going forward. He does NOT appear capable of managing his own funds and he will need someone to make such decisions going forward. 2. Concerning his ability to live alone and independently, this patient is functioning at a Global Deterioration Scale level of 7, which functionally means that this patient is unable to survive at home without maximum 24 hour/day assistance. During interview, he was unable to recall relevant aspects of his life; he was disoriented, in addition to the cognitive impairments described in this report. Given these neuropsychological evaluation results, this patient cannot return home to an independent living situation and will need placement in a facility with significant structure. Treatment Plan This clinician will continue to follow with you throughout the course of this patients rehabilitation treatment, and I will be available to meet with the patients family/support system to facilitate their understanding and the ongoing care of their family member. The goals of neuropsychological intervention shall be both educational and supportive to the family/support system as is deemed clinically appropriate. Discharge Needs To be determined. Session Attendance Variance 1 hour, including staff consultation, interview with , medical record review , evaluation time, and report write-up. Thank you Thank you for the opportunity to assist in this patients care. Samuel Ibanez, Ph.D., ABPP Board Certified in Clinical Neuropsychology [place] [employer] [place] Licensed Psychologist #[id number] Samuel Ibanez PhD Jun 24, 2016 1:11 pm
--- NOTE | 2016-06-24 15:17 | RADRPT ---
EXAM DATE/TIME: 06/24/2016 14:17 [facility] COMPARISON: No previous studies available for comparison. INDICATIONS : Left foot pain since the patients fall 2 days ago. MEDICAL HISTORY : None. SURGICAL HISTORY : None. ENCOUNTER: Subsequent ACUITY: 2 days PAIN SCORE: 5/10 LOCATION: Left foot. FINDINGS: Three view examination of the left foot demonstrates no soft tissue swelling, dislocation, or fractur e. The tarsal bones appear intact. Mild hallux valgus deformity of the first ray. The interphalang eal and metatarsophalangeal joints are intact. The calcaneus is intact. Bony mineralization is norm al. Calcaneal spur is seen at plantar aponeurosis. There is atherosclerotic calcification of the esther onal vasculature. CONCLUSION: 1. No acute osseous injury. 2. Mild hallux valgus deformity of the first ray. 3. Calcaneal spur at the plantar aponeurosis. 4. No acute osseous injury. Kenneth Watson MD on June 24, 2016 at 15:12 Board Certified Radiologist. This report was verified electronically.
--- NOTE | 2016-06-24 16:01 | RADRPT ---
EXAM DATE/TIME: 06/24/2016 14:11 [place] COMPARISON: No previous studies available for comparison. INDICATIONS : Left ankle pain since the patients fall 2 days ago. MEDICAL HISTORY : Hypertension. SURGICAL HISTORY : None. ENCOUNTER: Subsequent ACUITY: 2 days PAIN SCORE: 6/10 LOCATION: Left ankle. FINDINGS: The ankle is normally aligned. There are some small well corticated densities seen adj acent to the medial malleolus. These likely represent the sequelae of prior injury. Donor sites sugg est acute fractures not clearly seen. Soft-tissue swelling at the ankle is not clearly seen. There i s a calcaneal spur at the plantar aponeurosis attachment site. CONCLUSION: 1. Well-corticated bony density seen adjacent to the medial malleolus. These are though to likely be the sequelae of prior injury. An acute fracture is not seen. 2. Calcaneal spur. Dawood Jean MD on June 24, 2016 at 15:53 Board Certified Radiologist. This report was verified electronically.
[2016-06-24] MEDS: DONEPEZIL HCL 5 MG TAB PO SCH (21:59)
[2016-06-24] MEDS: MAGNESIUM HYDROXIDE SUSP 30 ML CUP PO SCH (22:00)
[2016-06-24] MEDS: FAMOTIDINE 20 MG TAB PO SCH (22:00)
[2016-06-25] VITALS (8 sets, daily range): BP systolic 102–119; BP diastolic 52–64; PULSE 50–85; RESP 16–20; TEMP 95.5–97.9; O2SAT 93–97
[2016-06-25] MEDS: CHLORHEXIDINE GLUCONATE 2 % 1 PACK (2 CLOTHS) TOP SCH (04:00)
[2016-06-25] MEDS: CEPHALEXIN MONOHYDRATE 500 MG CAP PO SCH ×3 (05:38→21:51)
[2016-06-25] MEDS: INSULIN ASPART SUPPLEMENTAL SCALE SQ SCH ×5 (06:00→23:09)
[2016-06-25] MEDS: PROPRANOLOL HCL 20 MG TAB PO SCH ×2 (08:55→21:51)
[2016-06-25] MEDS: DOCUSATE SODIUM 100 MG CAP PO SCH ×2 (08:55→21:51)
[2016-06-25] MEDS: DILTIAZEM-CD 120 MG CAP ER PO SCH (08:55)
[2016-06-25] MEDS: QUEtiapine FUMARATE 25 MG TAB PO SCH ×2 (08:55→21:52)
[2016-06-25] MEDS: DIGOXIN 0.125 MG TAB PO SCH (08:55)
[2016-06-25] MEDS: FUROSEMIDE 20 MG TAB PO SCH ×2 (08:55→21:52)
[2016-06-25] MEDS: SODIUM CHLORIDE 0.9% FLUSH 5 ML FLUSH IV FLUSH SCH ×2 (08:55→21:52)
[2016-06-25] MEDS: FLUoxetine HCL 20 MG CAP PO SCH (08:55)
[2016-06-25] MEDS ORDERED: PNEUMOCOCCAL POLYVALENT INJ 25 MCG/0.5 ML SYR IM ONE (10:00)
--- NOTE | 2016-06-25 10:13 | HHI.NSPN ---
(Patrick Su) History Chief Complaint: Headache. (Patrick Su) Interval History This is a 81-year-old gentleman who was transferred from [facility] after presenting there with a fall with subsequent facial fractures and a small frontal lobe contusion. He has been confused with some repetitive speech although he is able to follow simple commands but not relate much of a history. He states that he is unsteady on his feet in a chronic basis and uses a cane and he tripped and fell. He is on chronic Coumadin therapy for atrial fibrillation and also relates a history of diabetes and states he has other multiple medical problems. Main complaint at this point is left lateral chest wall area pain and some facial pain. CT scan of the head reveals a 1.1 cm left frontal lobe contusion from last night and a followup CT scan this morning this contusion is stable with no progression. He also has fracture of the left maxilla and he has been seen by maxillofacial surgery and recommended conservative management for now. 06/24/16: Pt awake and alert. Confused but pleasant. Complains of headache. No nausea or vomiting. 06/25/16: Pt awake and alert. Periods of confusion and he is in a Ash vest. No headache, nausea, vomiting. (Patrick Su) Review of Systems General: Negative for: fever, chills, insomnia Respiratory: Negative for: shortness of breath, cough, sputum Cardiovascular: Negative for: chest pain Gastrointestinal: Negative for: nausea, vomitting, diarrhea, constipation ( Patrick Su) Exam Results Vital Signs Date Time Temp Pulse Resp B/P Pulse Ox O2 Delivery O2 Flow Rate FiO2 06/25/16 08:00 97.2 56 16 108/55 96 06/25/16 01:22 Room Air 06/24/16 10:06 21 06/23/16 07:45 1.00 Intake and Output 06/24/16 06/24/16 06/25/16 08:00 16:00 00:00 Intake Total 60 ml 480 ml 240 ml Output Total 600 ml Balance -540 ml 480 ml 240 ml (Patrick Su) Physical Examination Resp: CTA bilaterally Heart: Irregular. 3/6 systolic ejection murmur Abd: Soft positive bs Skin: Left periorbital ecchymosis. Sutures left of eye clean and dry. Muscle: Moves all 4 extremities with good strength, symmetrically. Neuro: Pt awakens to voice. Pupils 4mm bilaterally reactive bilaterally. Confused but pleasant. Follows commands well. (Patrick Su) Lab, Micro, Other Results Last Impressions Foot X-Ray 06/24/16 0000 Signed Impressions: Service Date/Time: Friday, June 24, 2016 14:17 - CONCLUSION: 1. No acute osseous injury. 2. Mild hallux valgus deformity of the first ray. 3. Calcaneal spur at the plantar aponeurosis. 4. No acute osseous injury. Kenneth Watson MD Ankle X-Ray 06/24/16 0000 Signed Impressions: Service Date/Time: Friday, June 24, 2016 14:11 - CONCLUSION: 1. Well-corticated bony density seen adjacent to the medial malleolus. These are though to likely be the sequelae of prior injury. An acute fracture is not seen. 2. Calcaneal spur. Dawood Jean MD Head CT 06/23/16 0400 Signed Impressions: Service Date/Time: Thursday, June 23, 2016 04:13 - CONCLUSION: Stable small left frontal parenchymal contusion Dawood Givens MD Maxillofacial CT 06/22/16 0000 Signed Impressions: Service Date/Time: Wednesday, June 22, 2016 17:36 - CONCLUSION: Fractures of the left maxillary antrum. Small 1 cm orbital frontal hemorrhage on the left. Rock Walters MD FACR 06/24/16 06/24/16 06/25/16 15:00 23:00 07:00 Intake Total 480 ml 240 ml 360 ml Balance 480 ml 240 ml 360 ml Intake Oral 480 ml 240 ml 360 ml # Voids 3 2 # Bowel Movements 0 2 (Patrick Su) Medical Decision Making Impression and Plan A: 81 y/o M with a mild traumatic brain injury with a small left frontal lobe contusion which is stable on follow-up imaging study. 2. Left maxillary sinus fracture. 3. Insulin dependent diabetes mellitus. 4. Chronic atrial fibrillation on Coumadin therapy with normal INR. PLAN Continue to monitor neuro exam while in hospital Continue with medical care Continue with rehab efforts. (Patrick Su) Attending Statement The exam, history, and the medical decision-making described in the above note were completed with the assistance of the mid-level provider. I reviewed and agree with the findings presented. I attest that I had a [id number] encounter with the patient on the same day, and personally performed and documented my assessment and findings in the medical record. (Ryan Nazario MD) Patrick Su Jun 25, 2016 10:13 Ryan Nazario MD Jun 25, 2016 11:52
--- NOTE | 2016-06-25 10:26 | HHI.PR ---
Neuropsych Behavior Behavior: Mild: Motivation, Frustration Tolerance/[place], Impulsive/Agitated, Moderate: Behavior, Severe: Coping/Acceptance, Cooperative w/ Treatment Cognitive Cognitive: Severe: Cognitive, Attention/Concentration, Confused/Orientation, Insight/Awareness, Judgement/Problem-Solving, Memory Psychosocial Psychosocial: Mild: Family/Other Adjustment, Moderate: Psychosocial, Severe: Realistic Expectation Progress Notes/Response to Tx Contents of Sessions: Memory Time with Patient: 15 minutes Premorbid psychological status Premorbid Cognitive, Emotional and Behavioral Status: Stable. The patient has an underlying major neurocognitive disorder due to Alzheimer's disease (see neuropsych report) that underlies his major neurocognitive disorder related to his recent brain injury. Behavioral Reactions of Patient and Family/Support System: Stable. The patient s family is experiencing ongoing issues of adjustment given the nature of the injury, and this aspect of recovery will require ongoing monitoring. I did speak at length with yesterday to gather history about his neurocognition over the past year, and patient was clearly experiencing a neurocognitive decline prior to his hospitalizations and SNF placement. Emotional/Behavioral Status of Patient and Family/Support System: Stable. Pertinent issues, if appropriate to this patients clinical care, are described in detail above. Maximizing acute care outcome It is recommended that the patient be monitored for emergent behavioral impulsivity as the medical condition evolves. This patients underlying neuropathological challenges secondary to major neurocognitive disorder due to Alzheimer's disease may limit his rehabilitation potential going forward. Anticipated Problems Ongoing areas of concern will include behavioral impulsivity, lack of insight and judgment, which is unlikely to improve with either time or treatment. He is expected to have major neurocognitive impairments going forward at some level. Presently, the patient is following one-step commands. Treatment Plan This clinician will continue to follow with you throughout the course of this patients rehabilitation treatment, and I will be available to meet with the patients family/support system to facilitate their understanding and the ongoing care of their family member. The goals of neuropsychological intervention shall be both educational and supportive to the family/support system as is deemed clinically appropriate. Because this patient has an underlying neurocognitive condition that was significant in it's own right, with a superimposed neurocognitive condition, it is my clinical opinion that even if he were to enjoy maximal neurocognitive recovery from his traumatic brain injury, the patient will still have underlying neurocognitive impairments , and consequently, certain restrictions are necessary going forward to manage his ongoing care, which include the followin. This patient is NOT considered to be cognitively capable of making decisions of a legal, financial and medical nature due both to his present and underlying neurocognitive impairments. He demonstrates the IMPAIRED ability to appreciate a situation and its likely consequences and he demonstrates the IMPAIRED ability to manipulate information rationally. He will require family input regarding all important decisions going forward. He does NOT appear capable of managing his own funds and he will need someone to make such decisions going forward. 2. Concerning his ability to live alone and independently, this patient is functioning at a Global Deterioration Scale level of 7, which functionally means that this patient is unable to survive at home without maximum 24 hour/ day assistance. During interview, he was unable to recall relevant aspects of his life; he was disoriented, in addition to the cognitive impairments described in this report. Given these neuropsychological evaluation results, this patient cannot return home to an independent living situation unless he has 24 hour/day supervision and he will likely need placement in a facility with significant structure. 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 These double conditions will attenuate his recovery going forward. Diagnosis: (1) Major neurocognitive disorder as late effect of traumatic brain injury with behavioral disturbance Status: Acute (2) Major neurocognitive disorder due to Alzheimer's disease, probable, with behavioral disturbance Status: Chronic Progress Note Narrative Ongoing follow-up of patient who was seen in his room bedside. Patient remains confused, but his agitation appears to have abated somewhat, although he remains in restraints given ongoing issues of impulsivity related to the neurobehavioral effects of his brain injury. No family was present today. I will continue to follow with you. Samuel Ibanez PhD Jun 25, 2016 10:26 am
--- NOTE | 2016-06-25 12:19 | HHI.PR ---
Subjective Subjective Notes PTD: 3 Patient is a bit more lethargic today. He is requiring a Ash vest for safety. He is being bathed by [employer] during rounds. Objective Vitals/I&O Vital Signs Date Time Temp Pulse Resp B/P Pulse Ox O2 Delivery O2 Flow Rate FiO2 06/25/16 08:00 97.2 56 16 108/55 96 06/25/16 01:22 Room Air 06/24/16 10:06 21 06/23/16 07:45 1.00 Labs Laboratory Tests Test 06/22/16 06/22/16 06/23/16 06/24/16 17:20 22:30 03:41 08:17 Prothrombin Time 14.8 SEC Prothromb Time International 1.3 RATIO Ratio Nasal Screen MRSA (PCR) NEGATIVE Phosphorus Level 3.8 MG/DL White Blood Count 9.1 TH/MM3 Red Blood Count 4.34 MIL/MM3 Hemoglobin 13.3 GM/DL Hematocrit 42.9 % Mean Corpuscular Volume 98.8 FL Mean Corpuscular Hemoglobin 30.7 PG Mean Corpuscular Hemoglobin 31.1 % Concent Red Cell Distribution Width 18.2 % Platelet Count 188 TH/MM3 Mean Platelet Volume 9.2 FL Hematology Comments Sodium Level 141 MEQ/L Potassium Level 3.6 MEQ/L Chloride Level 103 MEQ/L Carbon Dioxide Level 27.4 MEQ/L Anion Gap 11 MEQ/L Blood Urea Nitrogen 19 MG/DL Creatinine 0.85 MG/DL Estimat Glomerular Filtration 86 ML/MIN Rate Random Glucose 125 MG/DL Calcium Level 8.6 MG/DL Magnesium Level 1.7 MG/DL Radiology Last Impressions Foot X-Ray 06/24/16 0000 Signed Impressions: Service Date/Time: Friday, June 24, 2016 14:17 - CONCLUSION: 1. No acute osseous injury. 2. Mild hallux valgus deformity of the first ray. 3. Calcaneal spur at the plantar aponeurosis. 4. No acute osseous injury. Kenneth Watson MD Ankle X-Ray 06/24/16 0000 Signed Impressions: Service Date/Time: Friday, June 24, 2016 14:11 - CONCLUSION: 1. Well-corticated bony density seen adjacent to the medial malleolus. These are though to likely be the sequelae of prior injury. An acute fracture is not seen. 2. Calcaneal spur. Dawood Jean MD Head CT 06/23/16 0400 Signed Impressions: Service Date/Time: Thursday, June 23, 2016 04:13 - CONCLUSION: Stable small left frontal parenchymal contusion Dawood Givens MD Maxillofacial CT 06/22/16 0000 Signed Impressions: Service Date/Time: Wednesday, June 22, 2016 17:36 - CONCLUSION: Fractures of the left maxillary antrum. Small 1 cm orbital frontal hemorrhage on the left. Rock Walters MD FACR Narrative Exam GENERAL: This is a 81-year-old male in bed in no distress. SKIN: Warm and dry. HEAD: Atraumatic. Normocephalic. EYES: PERRLA. Bilateral eye swelling and ecchymosis. ENT: No nasal bleeding or discharge. Mucous membranes pink and moist. NECK: Trachea midline. No JVD. CARDIOVASCULAR: Regular rate and rhythm. CM shows Afib. HR = 77-85. RESPIRATORY: No accessory muscle use. Lungs are clear to auscultation. Breath sounds equal bilaterally. No distress or dyspnea. GASTROINTESTINAL: BS + x 4 quads. Abdomen soft, non-tender, nondistended. MUSCULOSKELETAL: Extremities without cyanosis, or edema. + peripheral pulses x 4 extremities. Warm with good capillary refill and sensation. MAEW. NEUROLOGICAL: Awake but lethargic. A/P Problem List: (1) Atrial fibrillation (2) Maxillary fracture (3) Fall (4) Cerebral parenchymal hemorrhage (5) Intracranial bleed (6) Facial fracture due to fall (7) Major neurocognitive disorder as late effect of traumatic brain injury with behavioral disturbance (8) Major neurocognitive disorder due to Alzheimer's disease, probable, with behavioral disturbance Assessment and Plan [place]: This is a 81-year-old male who sustained a fall. Apparently he fell forward onto his face. (According to his , he's been falling more and more frequently) INJURIES: LEFT periorbital contusion (4 sutures) Small LEFT frontal lobe parenchymal contusion / bleed LEFT sided maxillary sinus fx LEFT zygomatic arch fx Consults: [facility]. OMFS. Neurosurgery, Neuropsych. Palliative care. Diet: Regular mechanical soft diet (per OMFS). Tolerating po diet. Encourage good po intake with each meal. Pulmonary: Encourage good pulmonary toileting. IS at bedside and pt encouraged to use. Rationale for use explained to patient, and verbalized understanding. Duonebs ordered. PAIN Management: Tylenol po. Added Seroquel, propanolol, Aricept, and Ativan 3 TID PRN. Activity: OOB with assist. PT and OT ordered. GI prophylaxis: Pepcid HS. Bowel regimen: Colace and MOM. BM x 2. DVT prophylaxis: Mechanical VTE with SCDs. Chemical management contraindicated at this time is to parenchymal contusion/bleed. HTN meds: Cardizem, Digoxin, Lasix, ABX: Keflex 500mg TID. DC Planning: Case management consulted for assistance with final discharge disposition. Patient previously lived in an [facility], however he will need full- time placement upon discharge. Palliative care consult obtained at 's request to assist with goals and decision-making. Discussed with RN at bedside. Emotional support provided to patient at bedside and plan of care discussed. Patient is hemodynamically stable and is managed on the med/surg floor.. The exam, history, and the medical decision-making described in the above note were completed with the assistance of the mid-level provider. I reviewed and agree with the findings presented. I attest that I had a [id number] encounter with the patient on the same day, and personally performed and documented my assessment and findings in the medical record. Problem Qualifiers (1) Atrial fibrillation: Qualified Code: I48.2 - Chronic atrial fibrillation (2) Maxillary fracture: Qualified Code: S02.40DA - Closed fracture of left side of maxilla, initial encounter (3) Fall: Qualified Code: W19.XXXA - Fall, initial encounter (4) Cerebral parenchymal hemorrhage: (5) Facial fracture due to fall: Qualified Code: S02.92XA - Facial fracture due to fall, closed, initial encounter Corina Ramirez Jun 25, 2016 12:19 Vignesh Ghosh MD Jul 01, 2016 19:48
[2016-06-25] MEDS: DONEPEZIL HCL 5 MG TAB PO SCH (21:51)
[2016-06-25] MEDS: MAGNESIUM HYDROXIDE SUSP 30 ML CUP PO SCH (21:51)
[2016-06-25] MEDS: ATORVASTATIN 20 MG TAB PO SCH (21:52)
[2016-06-25] MEDS: FAMOTIDINE 20 MG TAB PO SCH (21:52)
--- NOTE | 2016-06-25 23:17 | MB ---
cc: WILFRED LANG DATE OF CONSULTATION 06/22/15 1935 DATE OF ADMISSION 06/22/2016 HISTORY OF PRESENT ILLNESS This is a patient who was in a standing position and fell forward hitting his face. He was seen at an outside hospital and found to have facial fracture as well as a small parenchymal contusion. A transfer to a trauma center was requested. The patient is a poor historian, has a history of dementia. As a result, past history is unobtainable as well as review of systems. PHYSICAL EXAMINATION GENERAL: On exam he is laying in bed. HEENT: His pupils are three, equal and reactive. The patient has ecchymosis over his periorbital region. NECK: Trachea is midline. His neck is nontender. LUNGS: Respirations are clear. CARDIOVASCULAR: Irregular. GASTROINTESTINAL: Soft, nontender. MUSCULOSKELETAL: No deformities. NEUROLOGIC: Grossly intact. IMAGING STUDIES CT of the head revealed Facial bone fractures and orbital frontal hemorrhage. ASSESSMENT This is a patient with a fall with closed head injury, orbital fracture. The patient has been admitted to [facility] under critical care. Neurosurgery has been consulted as well as oral maxillofacial surgery. We will monitor his neurological status and provide pain management. MD ACE King/ /10:46 PM /11:03 PM MTDD
[2016-06-26 00:23] VITALS: BP 111/76; PULSE 58; RESP 17; TEMP 97.8; O2SAT 94
[2016-06-26] MEDS: CHLORHEXIDINE GLUCONATE 2 % 1 PACK (2 CLOTHS) TOP SCH (04:00)
[2016-06-26 05:05] VITALS: BP 120/69; PULSE 57; RESP 18; TEMP 97.8; O2SAT 94
[2016-06-26] MEDS: INSULIN ASPART SUPPLEMENTAL SCALE SQ SCH ×3 (06:01→18:00)
[2016-06-26] MEDS: CEPHALEXIN MONOHYDRATE 500 MG CAP PO SCH ×2 (06:03→13:26)
[2016-06-26] MEDS: ACETAMINOPHEN 325 MG TAB PO PRN (06:03)
[2016-06-26 08:24] VITALS: BP 121/75; PULSE 54; RESP 20; TEMP 97.6; O2SAT 96
[2016-06-26] MEDS: DOCUSATE SODIUM 100 MG CAP PO SCH (08:58)
[2016-06-26] MEDS: PROPRANOLOL HCL 20 MG TAB PO SCH (08:58)
[2016-06-26] MEDS: QUEtiapine FUMARATE 25 MG TAB PO SCH (08:58)
[2016-06-26] MEDS: DIGOXIN 0.125 MG TAB PO SCH (08:58)
[2016-06-26] MEDS: FUROSEMIDE 20 MG TAB PO SCH (08:58)
[2016-06-26] MEDS: FLUoxetine HCL 20 MG CAP PO SCH (08:58)
[2016-06-26] MEDS: DILTIAZEM-CD 120 MG CAP ER PO SCH (08:58)
[2016-06-26] MEDS: SODIUM CHLORIDE 0.9% FLUSH 5 ML FLUSH IV FLUSH SCH (08:59)
--- NOTE | 2016-06-26 10:06 | PD.CONS ---
Consult Service Palliative Care . Consult Requested By Corina FITZGERALD . Primary Care Physician Unknown . Reason for Consultation a. To assist with evaluation and management of symptoms including: pain, confusion, agitation b. To assist medical decision maker(s) with: better understanding of current medical conditions; weighing benefits/burdens of medical treatment options; making medical treatment decisions. . (Leila Desai) HPI History of Present Illness Mr. Butt is an 81 year male who was transferred from [facility] to [facility] on 06/22/16 secondary to sustaining a closed head injury status post a fall. An initial CT done at [facility] showed a axillary fracture and a small left frontal lobe parenchymal contusion/bleed. Upon arrival, the patient appeared somnolent. He was confused and responded to questions repetitively with the same answer. GCS of 13. Patient had a large contusion on the left periorbital region with sutures in place. Additional diagnostic findings on arrival include: * Vital sign: Pulse 88, respirations 18, BP 132/84, oxygen saturation 97% on room air, oral temperature 97.6 * PT: 14.8, INR 1.3 * CT facial bones: showed fracture of the left maxillary antrum and a small 1 cm orbital frontal hemorrhage on the left. * CT brain: showed 1cm left orbital rectal hemorrhage, there is a fracture of the anterior orbital rim as well as the posterior lateral orbital rim. Dr. Fortune, trauma surgeon, accepted the patient under his service and the patient was admitted to the ICU. Maxillofacial and neurosurgery were consulted. Follow-up CT of the head on 06/23/16 showed a stable small left frontal lobe contusion. Maxillofacial surgery evaluated the patient and recommended conservative management. Neurosurgery was in agreement and recommended the patient's diet and activity status be increased as tolerated, physical therapy, safety evaluation. The patient's reports the patient has experienced a cognitive decline for greater than 1 year, characterized by impairment of memory, increasing paranoia concerning 's activities and deterioration of self-care activities. Patient' s states the patient was placed in a SNF approximately 9 months ago after being hospitalized with a GIB. She states she was no longer able to care for him at home, and she had become fearful because of his worsening behaviors. Th patient became disoriented over night on 06/24/16 requiring restraints. Because of his clinical history, neuropsychology was consulted for a baseline neuropsychological evaluation. Per Dr. 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 These double conditions will attenuate his recovery going forward. Palliative Care was consulted to assist with symptom management and to discuss with the patient/family the benefits and burdens of his current illnesses and the options regarding future care. . Function/Cognitive Trajectory Patient is currently hospitalized with a TBI status post a fall. His states the patient has been cognitively declining for more than a year, characterized by impairment of memory, increasing paranoia concerning 's activities in deterioration of self-care activities. Patient was placed in a SNF several months ago after being hospitalized in Oct, 2015 with a GIB. Since that time the patient has continued to decline both physically and cognitively. His recovery has been complicated by a series of falls, rehospitalizations and decreased oral intake. . (Leila Desai) Review of Systems ROS Limitations: Altered Mental Status, Speech Impaired, Poor Historian Constitutional: COMPLAINS OF: Change in appetite (Diminished/poor appetite), Pain, Generalized weakness, DENIES: Weight loss (Reported by ) Musculoskeletal: COMPLAINS OF: Decreased range of motion Hematologic/Lymphatics: COMPLAINS OF: Bruising Neurologic: COMPLAINS OF: Abnormal gait, Poor Balance Psychiatric: COMPLAINS OF: Anxiety, Confusion, Agitation (Leila Desai) Past Family Social History Coded Allergies: No Known Allergies (Verified , 06/22/16) Past Medical History Atrial Fibrillation DM Skin Cancer GIB secondary to large duodenal ulcer PUD HLD Ulcerative colitis HTN Gout GERD . Past Surgical History Colon resection 2001 secondary to ulcerative colitis EGD Coloscopy . Reported Medications Klor-Con M10 (Potassium Chloride Microencaps) Unknown Strength Tab Unknown Dose PO BID Lasix (Furosemide) 20 Mg Tab 20 Mg PO BID Prozac (Fluoxetine HCl) 20 Mg Cap 20 Mg PO DAILY Glipizide 5 Mg Tab 5 Mg PO BIDAC Take 30 minutes before a meal Ferrous Sulfate 325 Mg Tab 325 Mg PO DAILY Colace (Docusate Sodium) 100 Mg Cap 100 Mg PO BID Diltiazem CD 24 HR 120 Mg Caper 120 Mg PO DAILY Digoxin 0.125 Mg Tab 0.125 Mg PO DAILY Atorvastatin (Atorvastatin Calcium) 20 Mg Tab 20 Mg PO HS . Current Medications Medications (Trade) Dose Ordered Sig/Courtney Route Start Time Stop Time Status Last Admin (NS Flush) 2 ml UNSCH PRN IV FLUSH 06/22/16 19:45 (NS Flush) 2 ml BID IV FLUSH 06/22/16 21:00 06/26/16 08:59 (Tylenol) 650 mg Q6H PRN PO 06/22/16 19:45 06/26/16 06:03 (Zofran Inj) 4 mg Q6H PRN IV 06/22/16 19:45 Miscellaneous Information 1 Q361D XX 06/22/16 19:45 (Chlorhexidine 2% Cloth) 3 pack Taper DAILY@04 TOP 06/23/16 04:00 06/19/17 03:59 06/23/16 04:57 (Chlorhexidine 2% Cloth) 3 pack UNSCH PRN TOP 06/22/16 19:45 (Lipitor) 20 mg HS PO 06/22/16 21:00 06/25/16 21:52 (Lanoxin) 0.125 mg DAILY PO 06/23/16 09:00 06/26/16 08:58 (Cardizem Cd) 120 mg DAILY PO 06/23/16 09:00 06/26/16 08:58 (PROzac) 20 mg DAILY PO 06/23/16 09:00 06/26/16 08:58 (Lasix) 20 mg BID PO 06/22/16 21:00 06/26/16 08:58 (D50w (Vial) Inj) 25 ml UNSCH PRN IV PUSH 06/22/16 20:15 (Glucagon Inj) 1 mg UNSCH PRN OTHER 06/22/16 20:15 (NovoLOG SUPPLEMENTAL SCALE) 1 Q6H SQ 06/23/16 00:00 06/25/16 18:14 (Colace) 100 mg BID PO 06/23/16 09:00 06/26/16 08:58 (Milk Of Magnesia Liq) 30 ml HS PO 06/23/16 21:00 06/24/16 22:00 (Keflex) 500 mg Q8HR PO 06/23/16 14:00 06/26/16 06:03 (SEROquel) 25 mg BID PO 06/23/16 21:00 06/26/16 08:58 (Pepcid) 20 mg HS PO 06/24/16 21:00 06/25/16 21:52 (Inderal) 20 mg Q12HR PO 06/24/16 09:45 06/26/16 08:58 (Aricept) 10 mg HS PO 06/24/16 21:00 06/25/16 21:51 (Ativan) 0.5 mg TID PRN PO 06/24/16 10:45 . Family History Father at 54 secondary to tuberculosis. Mother's medical history is unknown. . Substance Use Tobacco: Former smoker Alcohol: None known Prescription med abuse: None known Illicit: None known . Psychosocial History Patient is originally from [place]. He has siblings, but he is not in contact with them per his . Patient has been to Natasha for approximately 23 years. The patient's has 2 adults son from a previous relationship. The patient never had children They met at the [employer] where they both worked. He enjoyed playing golf. The patient has been living in a SNF for approximally 9 months, His states she was no longer able to care for him because of his cognitive decline and associated agitation/behaviors. . Spiritual/Cultural Factors [place]que ele[place] . (Leila Desai) Family/friends goals: Patient's (Natasha) describes her as a fun-loving, intelligent, loving man who has lived a good life. She states that although they never completed written advanced directives, she is confident based on the was the patient lived his life and by conversations they shared that he would want the remainder of his life to focus on the quality vs. quantity. . Ethical and Legal Issues Per [place] statutes, in the absence of written advanced directive health care proxy decision making falls to the patient's Natasha Butt. . (Leila Desai) Physical Exam Vital Signs Date Time Temp Pulse Resp B/P Pulse Ox O2 Delivery O2 Flow Rate FiO2 06/26/16 08:24 97.6 54 20 121/75 96 06/26/16 06:15 Nasal Cannula 2.00 06/26/16 05:05 97.8 57 18 120/69 94 06/26/16 00:23 97.8 58 17 111/76 94 1/18/17 20:21 95.8 55 18 119/64 96 06/25/16 18:16 93 21 06/25/16 16:00 95.5 73 17 102/52 93 06/25/16 12:00 96.7 54 16 106/56 97 06/25/16 10:23 95 21 . 06/25/16 06/26/16 19:00 07:00 Intake Total 450 ml 240 ml Balance 450 ml 240 ml Intake Oral 450 ml 240 ml # Voids 3 3 # Bowel Movements 2 . Exam CONSTITUTIONAL/GENERAL: This is a frail, elderly male patient, in no apparent distress. TUBES/LINES/DRAINS: NC, PIV x 1 SKIN: Ecchymoses on extremities and face. Skin temperature appropriate. Not diaphoretic. HEAD: Atraumatic. Normocephalic. EYES: Pupils equal and round and reactive. Extraocular motions intact. No scleral icterus. No injection or drainage. Fundi not examined. Left eyelid swollen, bruised with laceration. ENT: Hearing grossly normal. Nose without bleeding or purulent drainage. NECK: Trachea midline. Supple, nontender. No palpable thyroid enlargement or nodularity. CARDIOVASCULAR: Irregular. No murmurs, gallops, or rubs. No JVD. Peripheral pulses symmetric. RESPIRATORY/CHEST: Symmetric, unlabored respirations. Breath sounds diminished bilaterally. No wheezes, rales, or rhonchi. GASTROINTESTINAL: Abdomen soft, non-tender, nondistended. No hepato-splenomegaly , or palpable masses. No guarding. Bowel sounds present. GENITOURINARY: Without palpable bladder distension. MUSCULOSKELETAL: Extremities without clubbing, cyanosis, or edema. No mottling or clubbing. LYMPHATICS: No palpable cervical or supraclavicular adenopathy. NEUROLOGICAL: Arouse to verbal stimuli. Oriented to self. Moves all extremities to command PSYCHIATRIC: Intermittent agitation, confused. . (Leila Desai) Diagnostic Tests Laboratory Laboratory Tests Test 06/24/16 08:17 White Blood Count 9.1 TH/MM3 (4.0-11.0) Red Blood Count 4.34 MIL/MM3 (4.50-5.90) Hemoglobin 13.3 GM/DL (13.0-17.0) Hematocrit 42.9 % (39.0-51.0) Mean Corpuscular Volume 98.8 FL (80.0-100.0) Mean Corpuscular Hemoglobin 30.7 PG (27.0-34.0) Mean Corpuscular Hemoglobin 31.1 % Concent (32.0-36.0) Red Cell Distribution Width 18.2 % (11.6-17.2) Platelet Count 188 TH/MM3 (150-450) Mean Platelet Volume 9.2 FL (7.0-11.0) Hematology Comments Sodium Level 141 MEQ/L (136-145) Potassium Level 3.6 MEQ/L (3.5-5.1) Chloride Level 103 MEQ/L (98-107) Carbon Dioxide Level 27.4 MEQ/L (21.0-32.0) Anion Gap 11 MEQ/L (5-15) Blood Urea Nitrogen 19 MG/DL (7-18) Creatinine 0.85 MG/DL (0.60-1.30) Estimat Glomerular Filtration 86 ML/MIN (>89) Rate Random Glucose 125 MG/DL (74-106) Calcium Level 8.6 MG/DL (8.5-10.1) Magnesium Level 1.7 MG/DL (1.5-2.5) . (Leila Desai) Result Diagram: 06/24/1617 06/24/16816 Imaging Last 72 hours Impressions Foot X-Ray 06/24/16 0000 Signed Impressions: Service Date/Time: Friday, June 24, 2016 14:17 - CONCLUSION: 1. No acute osseous injury. 2. Mild hallux valgus deformity of the first ray. 3. Calcaneal spur at the plantar aponeurosis. 4. No acute osseous injury. Kenneth Watson MD Ankle X-Ray 06/24/16 0000 Signed Impressions: Service Date/Time: Friday, June 24, 2016 14:11 - CONCLUSION: 1. Well-corticated bony density seen adjacent to the medial malleolus. These are though to likely be the sequelae of prior injury. An acute fracture is not seen. 2. Calcaneal spur. Dawood Jean MD . (Leila Desai) Patient/Family Conference Present at Family Conference: Met with patient's at patient's bedside and privately in the hallway. . Family Conference Time (mins): 45 Family Conference Location: Bedside, Hallway Issues Discussed: * Palliative care role, purpose, approach * Additional medical, psychosocial, and spiritual history * Patients general health, functional status, and cognitive changes in the months leading up to the current hospitalization * Patient/family understanding of the current medical problems * Patient/family understanding of prognosis * Patients goals of care as best understood from advance directives and/or conversations and/or values * Current medical treatment options and benefits/burdens of those options * Likely scenarios comparing ongoing aggressive care with a transition to comfort measures only * Questions answered to the best of my ability * Palliative care contact information provided . (Leila Desai) Assessment and Plan Disease Oriented Problem List: (1) Peptic ulcer disease (2) Atrial fibrillation (3) Maxillary fracture (4) Cerebral parenchymal hemorrhage (5) HTN (hypertension) (6) Diabetes (7) Alzheimer's disease Symptom Scale: (1) Pain Comment: Possible causes of pain include injury secondary to recent fall invasive lines, Byrd catheter, immobility, bedbound status etc. Showing no non- verbal signs or symptoms of pain on exam. PRN acetaminophen is available. Continue to monitor for both verbal and non-verbal signs of pain and make recommendations as appropriate. . (2) Confusion Comment: Patient became disoriented over night on 06/24/16 requiring restraints. The patient's reports the patient has experienced a cognitive decline for greater than 1 year, characterized by impairment of memory, increasing paranoia concerning 's activities and deterioration of self-care activities. (3) Agitation Pertinent Non-Medical Issues Psychosocial: Patient is originally from [place]. He has siblings, but he is not in contact with them per his . Patient has been to Natasha for approximately 23 years. The patient's has 2 adults son from a previous relationship. The patient never had children They met at the [employer] where they both worked. He enjoyed playing golf. The patient has been living in a SNF for approximally 9 months, His states she was no longer able to care for him because of his cognitive decline and associated agitation/behaviors. Spiritual: [place]que [place] Legal: Per [place] statutes, in the absence of written advanced directive health care proxy decision making falls to the patient's Natasha Butt. Ethical issues impacting care: No known ethical issues impacting care at this time. . Important Contacts Natasha Butt, spouse: [phone] . Prognosis Patient is an 81 yo male hospitalized with TBI s/p fall. Clinical course is complicated by multiple co-morbid conditions including a cognitive decline for more than a year, characterized by impairment of memory, increasing paranoia concerning 's activities in deterioration of self-care activities. Patient was placed in a SNF several months ago and has since continued to decline both physically and cognitively. His recovery has been complicated by a series of falls, rehospitalizations and decreased oral intake. Patient's underlying neurocognitive disorder superimposed on a new onset neurocognitive disorder secondary to a traumatic brain injury while attenuate this patient's recovery, overall prognosis is poor. . Code Status: No Code Plan * NO CODE * Decision-making: Per [place] statutes, in the absence of written advanced directive health care proxy decision making falls to the patient's Natasha Butt. HCP: Natasha Butt, . * Goals: Considering transitioning to hospice for symptom management and EOL care. * Patient's (Natasha) describes her as a fun-loving, intelligent, loving man who has lived a good life. She states that although they never completed written advanced directives, she is confident based on the was the patient lived his life and by conversations they shared that he would want the remainder of his life to focus on the quality vs quantity. * Hospice consult placed. Spoke to Citlaly at Hospice admission intake. Hospice admission nurse will contact family today to schedule a appointment. * Discussed with patient nurse, Mirtha, and Corina FITZGERALD * Discussed the process of resuscitation. Patient's requests that if the patient should go into cardiac arrest, he be allowed to pass peacefully and naturally stating, " It's up to God then." Patient's CODE STATUS be changed to NO CODEDNR/DNI. * Patient's stated they are having some "family issues" and requests only persons with patient's PIN number be given medical information. She states the floor nurse manager life, nurse and hospice admissions are aware as well. Spoke with patient's nurse, Mirtha, to confirm. * Symptom managementpain: Possible causes of pain include injury secondary to recent fall invasive lines, Byrd catheter, immobility, bedbound status etc. Showing no non-verbal signs or symptoms of pain on exam. PRN acetaminophen is available. Continue to monitor for both verbal and non-verbal signs of pain and make recommendations as appropriate. * Symptom management: confusion: Patient became disoriented over night on requiring restraints. The patient's reports the patient has experienced a cognitive decline for greater than 1 year, characterized by impairment of memory, increasing paranoia concerning 's activities and deterioration of self-care activities. * Palliative care contact information provided to the patient's . * Palliative care will continue to follow patient throughout his hospitalization to establish chest, assist with symptom management and clarification of medical treatment goals. . (Leila Desai) Thank you for the opportunity to participate in the care of Mr. Butt. . (Leila Desai) Attestation To help prompt me to consider important information that might be impacting today's encounter and assessment, information from prior notes written by myself or my colleagues may have been "brought forward" into today's note. My signature on this note, however, is an attestation that I personally performed the exam, history, and/or decision-making noted today, and, unless otherwise indicated, the interactions with patient, family, and staff as well as the review of records all occurred today. I also attest that the listed assessment and stated plan reflect my best clinical judgment today based on the combination of historical information, prior notes, and today's exam/ interactions. When time spent is documented, it refers only to time spent today by the signer, or if indicated, combined time spent today by collaborating physician/nurse practitioner. . (Leila Desai) Collaborating MD Comments Chart reviewed. Case discussed with palliative care DURAL MECHANIC. Above DURAL MECHANIC note reviewed and I concur. . (Anoop Oscar MD) Leila Desai Jun 26, 2016 10:06 Anoop Oscar MD Jul 27, 2016 08:03
--- NOTE | 2016-06-26 10:52 | HHI.NSPN ---
(Patrick Su) History Chief Complaint: Headache. (Patrick Su) Interval History This is a 81-year-old gentleman who was transferred from [facility] after presenting there with a fall with subsequent facial fractures and a small frontal lobe contusion. He has been confused with some repetitive speech although he is able to follow simple commands but not relate much of a history. He states that he is unsteady on his feet in a chronic basis and uses a cane and he tripped and fell. He is on chronic Coumadin therapy for atrial fibrillation and also relates a history of diabetes and states he has other multiple medical problems. Main complaint at this point is left lateral chest wall area pain and some facial pain. CT scan of the head reveals a 1.1 cm left frontal lobe contusion from last night and a followup CT scan this morning this contusion is stable with no progression. He also has fracture of the left maxilla and he has been seen by maxillofacial surgery and recommended conservative management for now. 06/24/16: Pt awake and alert. Confused but pleasant. Complains of headache. No nausea or vomiting. 06/25/16: Pt awake and alert. Periods of confusion and he is in a Ash vest. No headache, nausea, vomiting. 06/26/16: Pt awakens to stimulation. Denies headache, nausea, vomiting. Confused at times. (Patrick Su) Review of Systems General: Negative for: fever, chills, insomnia Respiratory: Negative for: shortness of breath, cough, sputum Cardiovascular: Negative for: chest pain Gastrointestinal: Negative for: nausea, vomitting, diarrhea, constipation ( Patrick Su) Exam Results Vital Signs Date Time Temp Pulse Resp B/P Pulse Ox O2 Delivery O2 Flow Rate FiO2 06/26/16 10:29 98 Nasal Cannula 2.00 06/26/16 08:24 97.6 54 20 121/75 06/25/16 18:16 21 Intake and Output 06/25/16 06/25/16 06/26/16 08:00 16:00 00:00 Intake Total 360 ml 450 ml Balance 360 ml 450 ml (Patrick Su) Physical Examination Resp: CTA bilaterally Heart: Irregular. 3/6 systolic ejection murmur Abd: Soft positive bs Skin: Left periorbital ecchymosis. Sutures left of eye clean and dry. Muscle: Moves all 4 extremities with good strength, symmetrically. Neuro: Pt awakens to voice. Pupils 4mm bilaterally reactive bilaterally. Confused but pleasant. Follows commands well. (Patrick Su) Lab, Micro, Other Results 06/25/16 06/25/16 06/26/16 15:00 23:00 07:00 Intake Total 450 ml 240 ml Balance 450 ml 240 ml Intake Oral 450 ml 240 ml # Voids 3 3 # Bowel Movements 2 (Patrick Su) Medical Decision Making Impression and Plan A: 81 y/o M with a mild traumatic brain injury with a small left frontal lobe contusion which is stable on follow-up imaging study. 2. Left maxillary sinus fracture. 3. Insulin dependent diabetes mellitus. 4. Chronic atrial fibrillation on Coumadin therapy with normal INR. PLAN Continue to monitor neuro exam while in hospital Continue with medical care Continue with rehab efforts/placement (Patrick Su) Attending Statement The exam, history, and the medical decision-making described in the above note were completed with the assistance of the mid-level provider. I reviewed and agree with the findings presented. I attest that I had a [id number] encounter with the patient on the same day, and personally performed and documented my assessment and findings in the medical record. (Ryan Nazario MD) Patrick Su Jun 26, 2016 10:52 Ryan Nazario MD Jun 26, 2016 16:46
--- NOTE | 2016-06-26 10:56 | HHI.PR ---
Neuropsych Emotional Emotional: UnabletoAssess: Emotional, Anxious/Fearful, Depressed/Sad, Hostile/ Resentful, Irritable/Angry/Frustrate, Labile, Constricted/Blunted Behavior Behavior: Mild: Impulsive/Agitated Cognitive Cognitive: Severe: Cognitive, Attention/Concentration, Confused/Orientation, Insight/Awareness, Judgement/Problem-Solving, Memory Progress Notes/Response to Tx Contents of Sessions: Memory Time with Patient: 15 minutes Premorbid psychological status Premorbid Cognitive, Emotional and Behavioral Status: Stable. The patient has an underlying major neurocognitive disorder due to Alzheimer's disease (see neuropsych report) that underlies his major neurocognitive disorder related to his recent brain injury. Behavioral Reactions of Patient and Family/Support System: Stable. The patient s family is experiencing ongoing issues of adjustment given the nature of the injury, and this aspect of recovery will require ongoing monitoring. I did speak at length with yesterday to gather history about his neurocognition over the past year, and patient was clearly experiencing a neurocognitive decline prior to his hospitalizations and SNF placement. Emotional/Behavioral Status of Patient and Family/Support System: Stable. Pertinent issues, if appropriate to this patients clinical care, are described in detail above. Maximizing acute care outcome It is recommended that the patient be monitored for emergent behavioral impulsivity as the medical condition evolves. This patients underlying neuropathological challenges secondary to major neurocognitive disorder due to Alzheimer's disease may limit his rehabilitation potential going forward. Anticipated Problems Ongoing areas of concern will include behavioral impulsivity, lack of insight and judgment, which is unlikely to improve with either time or treatment. He is expected to have major neurocognitive impairments going forward at some level. Presently, the patient is following one-step commands. Treatment Plan This clinician will continue to follow with you throughout the course of this patients rehabilitation treatment, and I will be available to meet with the patients family/support system to facilitate their understanding and the ongoing care of their family member. The goals of neuropsychological intervention shall be both educational and supportive to the family/support system as is deemed clinically appropriate. Because this patient has an underlying neurocognitive condition that was significant in it's own right, with a superimposed neurocognitive condition, it is my clinical opinion that even if he were to enjoy maximal neurocognitive recovery from his traumatic brain injury, the patient will still have underlying neurocognitive impairments , and consequently, certain restrictions are necessary going forward to manage his ongoing care, which include the followin. This patient is NOT considered to be cognitively capable of making decisions of a legal, financial and medical nature due both to his present and underlying neurocognitive impairments. He demonstrates the IMPAIRED ability to appreciate a situation and its likely consequences and he demonstrates the IMPAIRED ability to manipulate information rationally. He will require family input regarding all important decisions going forward. He does NOT appear capable of managing his own funds and he will need someone to make such decisions going forward. 2. Concerning his ability to live alone and independently, this patient is functioning at a Global Deterioration Scale level of 7, which functionally means that this patient is unable to survive at home without maximum 24 hour/ day assistance. During interview, he was unable to recall relevant aspects of his life; he was disoriented, in addition to the cognitive impairments described in this report. Given these neuropsychological evaluation results, this patient cannot return home to an independent living situation unless he has 24 hour/day supervision and he will likely need placement in a facility with significant structure. 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 These double conditions will attenuate his recovery going forward. Diagnosis: (1) Major neurocognitive disorder as late effect of traumatic brain injury with behavioral disturbance Status: Acute (2) Major neurocognitive disorder due to Alzheimer's disease, probable, with behavioral disturbance Status: Chronic Progress Note Narrative Ongoing follow-up of patient, who was seen in his room. No family present. Discussed progress with nurse on duty. Patient remains oriented only to person. Nursing reported that patient is somewhat lethargic, but more cooperative, and is able to be redirected verbally by nursing staff with provision of orientation information rather than relying on additional pharmacological agents to quell anxiety/agitation. I will continue to follow with you. Samuel Ibanez PhD Jun 26, 2016 10:56 am
[2016-06-26 13:11] VITALS: BP 111/71; PULSE 56; RESP 20; TEMP 97.5; O2SAT 98
--- NOTE | 2016-06-26 15:39 | HHI.PR ---
Subjective Subjective Notes Patient's at bedside requesting palliative care consult. Patient resting arousable to voice. Objective Vitals/I&O Vital Signs Date Time Temp Pulse Resp B/P Pulse Ox O2 Delivery O2 Flow Rate FiO2 06/26/16 13:11 97.5 56 20 111/71 98 06/26/16 10:29 Nasal Cannula 2.00 06/25/16 18:16 21 Labs Laboratory Tests Test 06/22/16 06/22/16 06/23/16 06/24/16 17:20 22:30 03:41 08:17 Prothrombin Time 14.8 SEC Prothromb Time International 1.3 RATIO Ratio Nasal Screen MRSA (PCR) NEGATIVE Phosphorus Level 3.8 MG/DL White Blood Count 9.1 TH/MM3 Red Blood Count 4.34 MIL/MM3 Hemoglobin 13.3 GM/DL Hematocrit 42.9 % Mean Corpuscular Volume 98.8 FL Mean Corpuscular Hemoglobin 30.7 PG Mean Corpuscular Hemoglobin 31.1 % Concent Red Cell Distribution Width 18.2 % Platelet Count 188 TH/MM3 Mean Platelet Volume 9.2 FL Hematology Comments Sodium Level 141 MEQ/L Potassium Level 3.6 MEQ/L Chloride Level 103 MEQ/L Carbon Dioxide Level 27.4 MEQ/L Anion Gap 11 MEQ/L Blood Urea Nitrogen 19 MG/DL Creatinine 0.85 MG/DL Estimat Glomerular Filtration 86 ML/MIN Rate Random Glucose 125 MG/DL Calcium Level 8.6 MG/DL Magnesium Level 1.7 MG/DL Vital Signs Date Time Temp Pulse Resp B/P Pulse Ox O2 Delivery O2 Flow Rate FiO2 06/26/16 13:11 97.5 56 20 111/71 98 06/26/16 10:29 Nasal Cannula 2.00 06/25/16 18:16 21 Radiology Last Impressions Foot X-Ray 06/24/16 0000 Signed Impressions: Service Date/Time: Friday, June 24, 2016 14:17 - CONCLUSION: 1. No acute osseous injury. 2. Mild hallux valgus deformity of the first ray. 3. Calcaneal spur at the plantar aponeurosis. 4. No acute osseous injury. Kenneth Watson MD Ankle X-Ray 06/24/16 0000 Signed Impressions: Service Date/Time: Friday, June 24, 2016 14:11 - CONCLUSION: 1. Well-corticated bony density seen adjacent to the medial malleolus. These are though to likely be the sequelae of prior injury. An acute fracture is not seen. 2. Calcaneal spur. Dawood Jean MD Head CT 06/23/16 0400 Signed Impressions: Service Date/Time: Thursday, June 23, 2016 04:13 - CONCLUSION: Stable small left frontal parenchymal contusion Dawood Givens MD Maxillofacial CT 06/22/16 0000 Signed Impressions: Service Date/Time: Wednesday, June 22, 2016 17:36 - CONCLUSION: Fractures of the left maxillary antrum. Small 1 cm orbital frontal hemorrhage on the left. Rock Walters MD FACR Narrative Exam GENERAL: 81-year-old well-nourished, well developed male lying in bed. SKIN: Warm and dry. Left eye ecchymosis. CARDIOVASCULAR: Regular rate and rhythm. RESPIRATORY: No accessory muscle use. Lungs clear and diminished to auscultation. Breath sounds equal bilaterally. GASTROINTESTINAL: Abdomen soft, non-tender, nondistended. + BS. MUSCULOSKELETAL: Extremities without cyanosis, or edema. No obvious deformities. NEUROLOGICAL: Resting, arouses to voice. Normal speech. A/P Problem List: (1) Atrial fibrillation (2) Maxillary fracture (3) Fall (4) Cerebral parenchymal hemorrhage (5) Intracranial bleed (6) Facial fracture due to fall (7) Major neurocognitive disorder as late effect of traumatic brain injury with behavioral disturbance (8) Major neurocognitive disorder due to Alzheimer's disease, probable, with behavioral disturbance Assessment and Plan INJURIES: LEFT periorbital contusion (4 sutures) Small LEFT frontal lobe parenchymal contusion / bleed LEFT sided maxillary sinus fx LEFT zygomatic arch fx Diet: Mechanical soft diet Pulm: IS, nebs. Pain: Tylenol. Ativan TID PRN. Activity: OOB. PT and OT evaluating. GI: Pepcid Bowel: Colace, MOM. LBM 06/26. DVT: SCD's Neurosurgery following. Palliative care consulted to assist with goals of care. Patient's requests DNR status and hospice consult. Case management consulted for assistance with discharge planning. Plan of care discussed with patient and at bedside. Attending Statement pt seen at bedside palliative care planning discussed with family Attestation The exam, history, and the medical decision-making described in the above note were completed with the assistance of the mid-level provider. I reviewed and agree with the findings presented. I attest that I had a [id number] encounter with the patient on the same day, and personally performed and documented my assessment and findings in the medical record. Problem Qualifiers (1) Atrial fibrillation: Qualified Code: I48.2 - Chronic atrial fibrillation (2) Maxillary fracture: Qualified Code: S02.40DA - Closed fracture of left side of maxilla, initial encounter (3) Fall: Qualified Code: W19.XXXA - Fall, initial encounter (4) Cerebral parenchymal hemorrhage: (5) Facial fracture due to fall: Qualified Code: S02.92XA - Facial fracture due to fall, closed, initial encounter Bi Huerta Jun 26, 2016 15:38 Francisco Javier Garnett MD Jul 07, 2016 21:27
--- NOTE | 2016-06-26 16:13 | HHI.DS ---
Discharge Summary Admission Date Jun 22, 2016 at 17:35 Admitting Diagnosis fall, head bleed, facial fracture (1) Atrial fibrillation (2) Maxillary fracture (3) Fall (4) Cerebral parenchymal hemorrhage (5) Intracranial bleed (6) Facial fracture due to fall (7) Major neurocognitive disorder as late effect of traumatic brain injury with behavioral disturbance (8) Major neurocognitive disorder due to Alzheimer's disease, probable, with behavioral disturbance Brief History S/P fall. CBC/BMP: 06/24/16 0817 06/24/16 0817 Significant Findings Laboratory Tests Test 06/24/16 08:17 Red Blood Count 4.34 MIL/MM3 (4.50-5.90) Mean Corpuscular Hemoglobin 31.1 % Concent (32.0-36.0) Red Cell Distribution Width 18.2 % (11.6-17.2) Blood Urea Nitrogen 19 MG/DL (7-18) Estimat Glomerular Filtration 86 ML/MIN (>89) Rate Random Glucose 125 MG/DL (74-106) Imaging Last Impressions Foot X-Ray 06/24/16 0000 Signed Impressions: Service Date/Time: Friday, June 24, 2016 14:17 - CONCLUSION: 1. No acute osseous injury. 2. Mild hallux valgus deformity of the first ray. 3. Calcaneal spur at the plantar aponeurosis. 4. No acute osseous injury. Kenneth Watson MD Ankle X-Ray 06/24/16 0000 Signed Impressions: Service Date/Time: Friday, June 24, 2016 14:11 - CONCLUSION: 1. Well-corticated bony density seen adjacent to the medial malleolus. These are though to likely be the sequelae of prior injury. An acute fracture is not seen. 2. Calcaneal spur. Dawood Jean MD Head CT 06/23/16 0400 Signed Impressions: Service Date/Time: Thursday, June 23, 2016 04:13 - CONCLUSION: Stable small left frontal parenchymal contusion Dawood Givens MD Maxillofacial CT 06/22/16 0000 Signed Impressions: Service Date/Time: Wednesday, June 22, 2016 17:36 - CONCLUSION: Fractures of the left maxillary antrum. Small 1 cm orbital frontal hemorrhage on the left. Rock Walters MD FACR PE at Discharge GENERAL: 81-year-old well-nourished, well developed male lying in bed. SKIN: Warm and dry. Left eye ecchymosis. CARDIOVASCULAR: Regular rate and rhythm. RESPIRATORY: No accessory muscle use. Lungs clear and diminished to auscultation. Breath sounds equal bilaterally. GASTROINTESTINAL: Abdomen soft, non-tender, nondistended. + BS. MUSCULOSKELETAL: Extremities without cyanosis, or edema. No obvious deformities. NEUROLOGICAL: Resting, arouses to voice. Normal speech. Hospital Course [facility]: Patient fell at [facility] onto his face. INJURIES: LEFT periorbital contusion (4 sutures) Small LEFT frontal lobe parenchymal contusion / bleed LEFT sided maxillary sinus fx LEFT zygomatic arch fx Diet: Mechanical soft diet Pulm: IS, nebs. Pain: Tylenol. Ativan TID PRN. Activity: OOB. PT and OT evaluating. GI: Pepcid Bowel: Colace, MOM. LBM 06/26. DVT: SCD's Palliative care consulted to assist with goals of care. Patient's requests DNR status and hospice admission. Plan of care discussed with patient and at bedside. Discharge to hospice care center. Pt Condition on Discharge: Guarded Discharge Disposition: Hospice/Med Facility Discharge Instructions DIET: Follow Instructions for: As Tolerated, No Restrictions Speech Therapy-Diet Recommends: Mechanical Soft, Chopped Meat w/Gravy Activities you can perform: Regular-No Restrictions Bi Huerta Jun 26, 2016 16:13
[2016-06-26 17:52] VITALS: O2SAT 98
[2016-06-26 18:10] VITALS: BP 118/78; PULSE 53; RESP 20; TEMP 97.4; O2SAT 93
== END 2016-06-26 19:46 | disposition hospice, inpatient (51) | DRG 83 ==
LOC: NEPE 16:48 → NEDA 17:35 → N03A 21:23 → N05B 06-24 16:46
PROVIDERS: ADMIT Surgery; ATTEND Surgery
DX: S06.369A Traumatic hemorrhage of cerebrum, unspecified, with loss of consciousness of unspecified duration, initial encounter (principal); S06.2X9A Diffuse traumatic brain injury with loss of consciousness of unspecified duration, initial encounter; S02.40FA Zygomatic fracture, left side, initial encounter for closed fracture; S02.82XA Fracture of other specified skull and facial bones, left side, initial encounter for closed fracture; F02.81 Dementia in other diseases classified elsewhere, unspecified severity, with behavioral disturbance; I48.2 Chronic atrial fibrillation; G30.9 Alzheimer's disease, unspecified; E11.9 Type 2 diabetes mellitus without complications; R26.81 Unsteadiness on feet; I10 Essential (primary) hypertension; W01.0XXA Fall on same level from slipping, tripping and stumbling without subsequent striking against object, initial encounter; Z79.4 Long term (current) use of insulin; E78.5 Hyperlipidemia, unspecified; E78.00 Pure hypercholesterolemia, unspecified; K21.9 Gastro-esophageal reflux disease without esophagitis; M10.9 Gout, unspecified; Z87.11 Personal history of peptic ulcer disease; Z79.01 Long term (current) use of anticoagulants
CPT/HCPCS: 70450; 70486; 73610; 73630; 76937; 80048; 82948; 83735; 84100; 85027; 85610; 87641; 94150; C9113; J0690; J1630; J1815; J7030